=== PATIENT | female | born 1940 | race Caucasian/White ===

== ENCOUNTER 2016-09-27 10:35 | Outpatient (CLI) | payer MEDICARE, OTHER | END 2016-09-27 10:36 | disposition home or self-care (01) | DX: M19.011 Primary osteoarthritis, right shoulder (principal); M25.511 Pain in right shoulder ==

== ENCOUNTER 2016-12-13 11:56 | Outpatient (CLI) | payer MEDICARE, OTHER ==
--- NOTE | 2016-12-14 14:27 | Mammography Report ---
DIGITAL SCREENING MAMMOGRAM: 12/13/2016 CLINICAL INDICATION: A 76-year-old nulliparous patient with family history of breast cancer, for scre ening. COMPARISON: 12/2015, 12/2014, 12/2013, 07/2012, 06/2011, 06/2010, 05/2010, 04/2009, 12/2007, 11/2006. TECHNIQUE: Routine CC and MLO projections were obtained of the breasts. FINDINGS: The breasts again demonstrate heterogeneously dense fibroglandular parenchyma bilaterally. Coarse, typically benign calcifications are present. No suspicious masses, clustered microcalcificat ions, or regions of architectural distortion are identified. IMPRESSION: BENIGN FINDINGS. RECOMMENDATION: ROUTINE ANNUAL SCREENING UNLESS OTHERWISE CLINICALLY INDICATED. BIRADS CATEGORY 2-BENIGN FINDINGS. STANDARD QUALIFYING STATEMENTS 1. This examination was reviewed with the aid of Computer-Aided Detection (CAD). 2. A negative or benign imaging report should not delay biopsy if clinically suspicious findings are present. Consider surgical consultation if warranted. More than 5% of cancers are not identified by i maging. 3. Dense breasts may obscure an underlying neoplasm. JOB #: [id number] EXT JOB #:[id number]
== END 2016-12-13 11:57 | disposition home or self-care (01) ==
LOC: DI 11:56
PROVIDERS: ATTEND Physician Assistant Medical
DX: Z12.31 Encounter for screening mammogram for malignant neoplasm of breast (principal); Z80.3 Family history of malignant neoplasm of breast
CPT/HCPCS: 77067

== ENCOUNTER 2017-01-16 07:56 | Outpatient (CLI) | payer MEDICARE, OTHER ==
[2017-01-16 13:19] LABS: BASOPHILS % (AUTO) 0.7 %; EOSINOPHILS # (AUTO) 0.4 10^3/uL (0.0-0.7); EOSINOPHILS % (AUTO) 6.6 %; HCT - HEMATOCRIT 41.2 % (37.0-47.0); HGB - HEMOGLOBIN 13.8 g/dL (12.0-16.0); LYMPHOCYTES % (AUTO) 35.5 %; MEAN CORPUSCULAR HEMOGLOBIN 31.7 pg (27.0-31.0); MEAN CORPUSCULAR HGB CONC 33.4 g/dL (32.0-36.0); MEAN CORPUSCULAR VOLUME 94.9 fL (81.0-99.0); MEAN PLATELET VOLUME 8.7 fL (7.9-10.8); MONOCYTES # (AUTO) 0.5 10^3/uL (0.0-1.0); MONOCYTES % (AUTO) 8.6 %; NEUTROPHILS # (AUTO) 2.8 10^3/uL (1.5-6.6); NEUTROPHILS % (AUTO) 48.6 %; RED BLOOD COUNT 4.34 10^6/uL (4.20-5.40); RED CELL DISTRIBUTION WIDTH 12.7 % (12.0-15.0); UNCORRECTED WHITE BLOOD COUNT 5.7 x10^3/uL; WHITE BLOOD COUNT 5.7 x10^3/uL (4.8-10.8)
[2017-01-16 13:36] LABS: ALBUMIN/GLOBULIN RATIO 1.2 (1.0-2.2); BILIRUBIN,TOTAL 0.6 mg/dL (0.2-1.0); BUN - BLOOD UREA NITROGEN 28 mg/dL (6-20); CALCIUM 9.4 mg/dL (8.5-10.3); CARBON DIOXIDE - CO2 28 mmol/L (21-32); CHLORIDE 103 mmol/L (101-111); CHOLESTEROL 128 mg/dL; CREATININE 1.3 mg/dL (0.4-1.0); GFR - MDRD 40 (>89); GLUCOSE 89 mg/dL (70-100); HDL CHOLESTEROL 42 mg/dL; LDL/HDL RATIO 1.5 (<4.4); POTASSIUM 4.7 mmol/L (3.5-5.0); SODIUM 138 mmol/L (135-145); TOTAL PROTEIN 7.2 g/dL (6.7-8.2); TRIGLYCERIDES 123 mg/dL; VLDL CHOLESTEROL 25 mg/dL
== END 2017-01-16 07:57 | disposition home or self-care (01) ==
LOC: LAB.R 07:56
PROVIDERS: ATTEND Physician Assistant Medical
DX: I10 Essential (primary) hypertension (principal); E78.2 Mixed hyperlipidemia; M19.90 Unspecified osteoarthritis, unspecified site; Z79.899 Other long term (current) drug therapy; E55.9 Vitamin D deficiency, unspecified
CPT/HCPCS: 80053; 80061; 82306; 84443; 85025

== ENCOUNTER 2017-02-05 08:02 | Outpatient (CLI) | payer MEDICARE, OTHER ==
--- NOTE | 2017-02-05 11:32 | DEXA Report ---
DEXA SCAN: 02/05/2017 CLINICAL INDICATION: Postmenopausal. TECHNIQUE: Dual energy x-ray absorptiometry (DXA) was performed on a [employer] system. Regions measured are the AP spine, femoral neck, and, if needed, forearm. COMPARISON: None. In accordance with the International Society for Clinical Densitometry (ISCD) guidelines, data from previous exams may be reanalyzed using current recommendations and techniques. This is done to allow a more accurate basis for comparison with the current study. FINDINGS: The data for the lumbar spine is as follows: REGION BMD (g/cm/cm) T-SCORE Z-SCORE L1 1.117 -0.1 1.8 L2 1.146 -0.5 1.5 L3 1.180 -0.2 1.8 L4 1.195 0.0 1.9 TOTAL 1.165 -0.1 1.8 NOTE: All evaluable vertebrae are used for classification. The data for the hip is as follows: REGION BMD (g/cm/cm) T-SCORE Z-SCORE Neck 0.948 -0.6 1.4 TOTAL 0.958 -0.4 1.5 NOTE: The femoral neck or total proximal femur, whichever is lowest, is used for classification. IMPRESSION: THE WHO CLASSIFICATION BASED ON THE INTERNATIONAL REFERENCE STANDARD IS NORMAL. THE FRACTURE RISK IS NOT INCREASED. RECOMMENDATION: Patients with diagnosis of osteoporosis or osteopenia should have regular bone mineral density assessment. For those eligible for Medicare, routine testing is allowed once every 2 years. Testing frequency can be increased for patients who have rapidly progressing disease or for those who are receiving medical therapy to restore bone mass. COMMENT: World Health Organization (WHO) definitions for osteoporosis and osteopenia: NORMAL BMD: T-score at -1.0 or higher, fracture risk is low. OSTEOPENIA BMD: T-score between -1.0 and -2.5, fracture risk is increased. OSTEOPOROSIS BMD: T-score at -2.5 or lower, fracture risk high. National Osteoporosis Foundation recommends: 1. Obtain adequate dietary calcium (at least 1200 mg per day) and vitamin D (400 -800 international units per day). 2. Participate, as appropriate, in regular weightbearing and muscle- strengthening exercise. 3. Avoid tobacco use and reduce alcohol and caffeine intake. 4. For more detailed information see the website at www.NOF.org. MTDD
== END 2017-02-05 08:03 | disposition home or self-care (01) ==
LOC: DI 08:02
PROVIDERS: ATTEND Physician Assistant Medical
DX: M81.0 Age-related osteoporosis without current pathological fracture (principal)
CPT/HCPCS: 77080

== ENCOUNTER 2017-12-17 09:41 | Outpatient (CLI) | payer MEDICARE, OTHER ==
--- NOTE | 2017-12-18 13:12 | Mammography Report ---
Procedure Date: 12/17/2017 Accession Number: [id number] / [id number] Procedure: JAMAL - Screening Mammo Dig Bilat CPT Code: FULL RESULT: EXAM: Screening Mammo Dig Bilat DATE: 12/17/2017 10:16 AM CLINICAL HISTORY: 77-year-old nulliparous patient with family history of breast cancer for screening COMPARISON: 12/13/2016, 01/03/2016, 12/17/2014, 12/10/2013, 07/25/2012, 07/06/2011, 06/13/2010, 05/31/2010 TECHNIQUE: Bilateral CC and MLO views were obtained. FINDINGS: Breasts demonstrate heterogeneously dense fibroglandular parenchyma bilaterally. Coarse and punctate, typically benign calcifications are present. No suspicious masses, clustered microcalcifications, or regions of architectural distortion are identified. IMPRESSION: Benign findings RECOMMENDATION: Routine annual screening unless otherwise clinically indicated. BIRADS CATEGORY 2: Benign findings STANDARD QUALIFYING STATEMENTS: 1. This examination was reviewed with the aid of Computer-Aided Detection (CAD). 2. A negative or benign imaging report should not delay biopsy if clinically suspicious findings are present. Consider surgical consultation if warrented. More than 5% of cancers are not identified by imaging. 3. Dense breasts may obscure an underlying neoplasm.
== END 2017-12-17 09:42 | disposition home or self-care (01) ==
LOC: DI 09:41
PROVIDERS: ATTEND Physician Assistant Medical
DX: Z12.31 Encounter for screening mammogram for malignant neoplasm of breast (principal); Z80.3 Family history of malignant neoplasm of breast
CPT/HCPCS: 77067

== ENCOUNTER 2018-01-28 08:00 | Outpatient (CLI) | payer MEDICARE, OTHER ==
[2018-01-28 13:35] LABS: BASOPHILS # (AUTO) 0.1 10^3/uL (0.0-0.1); EOSINOPHILS # (AUTO) 0.3 10^3/uL (0.0-0.7); EOSINOPHILS % (AUTO) 5.5 %; HGB - HEMOGLOBIN 13.5 g/dL (12.0-16.0); LYMPHOCYTES # (AUTO) 1.9 10^3/uL (1.5-3.5); LYMPHOCYTES % (AUTO) 32.6 %; MEAN CORPUSCULAR HEMOGLOBIN 32.2 pg (27.0-31.0); MEAN CORPUSCULAR VOLUME 97.7 fL (81.0-99.0); MEAN PLATELET VOLUME 9.1 fL (7.9-10.8); MONOCYTES # (AUTO) 0.5 10^3/uL (0.0-1.0); NEUTROPHILS % (AUTO) 51.9 %; PLT - PLATELET COUNT 163 10^3/uL (130-450); RED BLOOD COUNT 4.19 10^6/uL (4.20-5.40); RED CELL DISTRIBUTION WIDTH 12.9 % (12.0-15.0); WHITE BLOOD COUNT 5.9 x10^3/uL (4.8-10.8)
[2018-01-28 13:57] LABS: ALBUMIN 3.8 g/dL (3.2-5.5); ALBUMIN/GLOBULIN RATIO 1.4 (1.0-2.2); ALKALINE PHOSPHATASE 52 IU/L (42-121); ALT ALANINE AMINOTRANSFERASE 19 IU/L (10-60); AST ASPARTATE AMINOTRANSFERASE 23 IU/L (10-42); BILIRUBIN,TOTAL 1.1 mg/dL (0.2-1.0); BUN - BLOOD UREA NITROGEN 29 mg/dL (6-20); CALCIUM 9.3 mg/dL (8.5-10.3); CARBON DIOXIDE - CO2 28 mmol/L (21-32); CHLORIDE 105 mmol/L (101-111); CHOL/HDL RATIO 2.8 (<4.4); CHOLESTEROL 124 mg/dL; CREATININE 1.2 mg/dL (0.4-1.0); GFR - MDRD 44 (>89); GLUCOSE 88 mg/dL (70-100); HDL CHOLESTEROL 44 mg/dL; LDL CHOLESTEROL,CALCULATED 52 mg/dL; LDL/HDL RATIO 1.2 (<4.4); SODIUM 137 mmol/L (135-145); TOTAL PROTEIN 6.6 g/dL (6.7-8.2); VLDL CHOLESTEROL 28 mg/dL
== END 2018-01-28 08:01 | disposition home or self-care (01) ==
LOC: LAB.R 08:00
PROVIDERS: ATTEND Physician Assistant Medical
DX: E55.9 Vitamin D deficiency, unspecified (principal); Z79.899 Other long term (current) drug therapy; E78.2 Mixed hyperlipidemia; I12.9 Hypertensive chronic kidney disease with stage 1 through stage 4 chronic kidney disease, or unspecified chronic kidney disease; N18.9 Chronic kidney disease, unspecified
CPT/HCPCS: 80053; 80061; 82306; 83721; 84443; 85025

== ENCOUNTER 2018-02-10 08:00 | Outpatient (CLI) | payer MEDICARE, OTHER ==
[2018-02-10 14:52] LABS: CALCIUM 9.5 mg/dL (8.5-10.3); CREATININE 1.2 mg/dL (0.4-1.0)
== END 2018-02-10 08:01 | disposition home or self-care (01) ==
LOC: LAB.R 08:00
PROVIDERS: ATTEND Physician Assistant Medical
DX: G60.9 Hereditary and idiopathic neuropathy, unspecified (principal); N18.9 Chronic kidney disease, unspecified
CPT/HCPCS: 80048; 82607

== ENCOUNTER 2018-02-13 08:17 | Outpatient (CLI) | payer MEDICARE, OTHER ==
--- NOTE | 2018-02-14 17:58 | MRI Report ---
Procedure Date: 02/13/2018 Accession Number: [id number] / [id number] Procedure: MRI - Lumbar Spine W/O CPT Code: FULL RESULT: EXAM: MRI LUMBAR SPINE WITHOUT CONTRAST EXAM DATE: 02/13/2018 09:42 AM. CLINICAL HISTORY: Peripheral neuropathy, chronic lumbar back pain. COMPARISON: None. TECHNIQUE: Multiplanar, multisequence T1-weighted and fluid-sensitive sequences of the lumbar spine from T12 to S1 without contrast. Other: None. FINDINGS: Numbering assumes 5 [id number] lumbar-type vertebral bodies. Grade 1 retrolisthesis of L5 relative to S1 and L3 relative to L4 is noted. Grade 1 retrolisthesis of L1 relative to L2 and L2 relative to L3 is present. Grade 1 anterolisthesis of L4 relative to L5 is noted. No suspicious marrow replacement is identified in the lumbar vertebral bodies. The distal tip of the conus medullaris is seen at the level of the inferior L1 endplate. No abnormal signal is seen in the conus medullaris. Facet/ligamentum flavum hypertrophy is seen throughout the lumbar spine, greatest in the lower lumbar spine, most evident at L4-L5. A remote superior endplate compression deformity is seen at T12. T8-T9: Sagittal images demonstrate a mild subligamentous disk protrusion. T9-T10: Sagittal images demonstrate a minimal subligamentous central disk protrusion. T10-T11: A moderate subligamentous central disk protrusion is seen on the sagittal views with what appears to be mild central canal stenosis. T11-T12 and T12-L1: No posterior disk protrusion. L1-L2: Sagittal views demonstrate a moderate broad-based posterior disk protrusion. There is suspicion for at least a borderline central canal at this level on the sagittal views. L2-L3: A mild to moderate broad-based posterior disk protrusion is seen without central canal stenosis. Superior lateral recess narrowing is seen bilaterally. No foraminal stenosis. L3-L4: A mild posterolateral proximal foraminal protrusion is seen bilaterally without central canal or foraminal stenosis present. Superior lateral recess narrowing is seen bilaterally. L4-L5: A mild broad-based posterior disk protrusion is seen. Disk material extends into the foramen bilaterally without foraminal stenosis present. Superior lateral recess stenosis is present bilaterally. Central canal measures 8 mm. L5-S1: A mild broad-based posterior disk protrusion is seen. Mild bilateral foraminal stenosis is seen. Very mild superior lateral recess stenosis is seen bilaterally. IMPRESSION: 1. Degenerative disk disease is seen at multiple levels in the lower thoracic spine and lumbar spine. This is greatest at T10-T11, L1-L2, L4-L5, and L5-S1. 2. Mild central canal stenosis is present at L4-L5. There is an at least borderline central canal at L1-L2 and at T10-T11 on the sagittal views. 3. Bilateral foraminal stenosis is present at L5-S1. 4. Bilateral superior lateral recess stenosis is seen at L4-L5 and to a much lesser extent L5-S1. 5. Multilevel spondylolisthesis, greatest at L4-L5. 6. A remote superior endplate compression deformity is present at T12. Comment: The following findings are so common in adults without low back pain that while we report their presence, they must be interpreted with caution and in the context of the clinical situation. (Reference Shruthivik et al, Spine 2001) Prevalence of findings in patients without low back pain: Disk degeneration (any evidence): 92% Disk desiccation/T2 signal loss: 83% Disk height loss: 56% Disk bulge: 64% Disk protrusion: 32% Annular tear/high intensity zone: 38% RADIA
== END 2018-02-13 08:18 | disposition home or self-care (01) ==
LOC: DI 08:17
PROVIDERS: ATTEND Physician Assistant Medical
DX: M51.36 Other intervertebral disc degeneration, lumbar region (principal); M48.061 Spinal stenosis, lumbar region without neurogenic claudication; M43.16 Spondylolisthesis, lumbar region; G60.9 Hereditary and idiopathic neuropathy, unspecified
CPT/HCPCS: 72148

== ENCOUNTER → 2018-04-17 | Outpatient (CLI) | payer MEDICARE, OTHER | LOC: RT 09:15 | PROVIDERS: ATTEND Internal Medicine Cardiovascular Disease | DX: Z01.810 Encounter for preprocedural cardiovascular examination (principal) | CPT/HCPCS: 93005 ==

== ENCOUNTER 2018-04-21 15:35 | Outpatient (CLI) | payer MEDICARE, OTHER ==
[2018-04-21 16:17] LABS: BASOPHILS # (AUTO) 0.1 10^3/uL (0.0-0.1); BASOPHILS % (AUTO) 0.9 %; EOSINOPHILS # (AUTO) 0.3 10^3/uL (0.0-0.7); EOSINOPHILS % (AUTO) 4.6 %; HGB - HEMOGLOBIN 13.5 g/dL (12.0-16.0); LYMPHOCYTES # (AUTO) 2.1 10^3/uL (1.5-3.5); LYMPHOCYTES % (AUTO) 35.2 %; MEAN CORPUSCULAR HEMOGLOBIN 31.9 pg (27.0-31.0); MEAN CORPUSCULAR HGB CONC 33.4 g/dL (32.0-36.0); MEAN CORPUSCULAR VOLUME 95.4 fL (81.0-99.0); MONOCYTES # (AUTO) 0.5 10^3/uL (0.0-1.0); MONOCYTES % (AUTO) 8.6 %; NEUTROPHILS # (AUTO) 3.1 10^3/uL (1.5-6.6); NEUTROPHILS % (AUTO) 50.7 %; PLT - PLATELET COUNT 188 10^3/uL (130-450); RED BLOOD COUNT 4.21 10^6/uL (4.20-5.40); WHITE BLOOD COUNT 6.1 x10^3/uL (4.8-10.8)
[2018-04-21 16:25] LABS: BILIRUBIN,URINE NEGATIVE (NEGATIVE); GLUCOSE, URINE (UA) NEGATIVE (NEGATIVE); KETONES,URINE (UA) NEGATIVE (NEGATIVE); LEUKOCYTE ESTERASE, URINE NEGATIVE (NEGATIVE); NITRITE,URINE NEGATIVE (NEGATIVE); OCCULT BLOOD,URINE NEGATIVE (NEGATIVE); PH,URINE 5.5 PH (5.0-7.5); PROTEIN,URINE NEGATIVE (NEGATIVE); UROBILINOGEN,URINE 0.2 (NORMAL) E.U./dL (NORMAL)
[2018-04-21 16:29] LABS: ALBUMIN/GLOBULIN RATIO 1.3 (1.0-2.2); BILIRUBIN,TOTAL 0.6 mg/dL (0.2-1.0); CALCIUM 9.1 mg/dL (8.5-10.3); CLARITY,URINE CLEAR (CLEAR); CREATININE 1.2 mg/dL (0.4-1.0); TOTAL PROTEIN 7.1 g/dL (6.7-8.2)
[2018-04-21 16:59] LABS: HB2 TOTAL 14.2 g/dL; HEMOGLOBIN A1C 0.59 g/dL
== END 2018-04-21 15:36 | disposition home or self-care (01) ==
LOC: LAB 15:35
PROVIDERS: ATTEND Physician Assistant Medical
DX: Z01.818 Encounter for other preprocedural examination (principal); N18.9 Chronic kidney disease, unspecified; M48.02 Spinal stenosis, cervical region; E78.2 Mixed hyperlipidemia; I10 Essential (primary) hypertension
CPT/HCPCS: 36415; 80053; 81001; 81003; 83036; 85025; 85610; 85730; 87086

== ENCOUNTER 2020-04-04 07:53 | Outpatient (CLI) | payer MEDICARE, OTHER ==
[2020-04-04 08:26] LABS: BASOPHILS % (AUTO) 0.7 %; EOSINOPHILS # (AUTO) 0.3 10^3/uL (0.0-0.7); HGB - HEMOGLOBIN 13.3 g/dL (12.0-16.0); LYMPHOCYTES # (AUTO) 1.8 10^3/uL (1.5-3.5); LYMPHOCYTES % (AUTO) 30.5 %; MEAN CORPUSCULAR HGB CONC 32.4 g/dL (32.0-36.0); MEAN CORPUSCULAR VOLUME 98.8 fL (81.0-99.0); MEAN PLATELET VOLUME 9.9 fL (7.9-10.8); MONOCYTES # (AUTO) 0.7 10^3/uL (0.0-1.0); MONOCYTES % (AUTO) 11.2 %; NEUTROPHILS # (AUTO) 3.2 10^3/uL (1.5-6.6); NEUTROPHILS % (AUTO) 52.4 %; PLT - PLATELET COUNT 186 10^3/uL (130-450); RED BLOOD COUNT 4.15 10^6/uL (4.20-5.40); RED CELL DISTRIBUTION WIDTH 13.1 % (12.0-15.0)
[2020-04-04 09:16] LABS: ALBUMIN 3.7 g/dL (3.2-5.5); ALBUMIN/GLOBULIN RATIO 1.2 (1.0-2.2); ALKALINE PHOSPHATASE 55 IU/L (42-121); ALT ALANINE AMINOTRANSFERASE 17 IU/L (10-60); AST ASPARTATE AMINOTRANSFERASE 21 IU/L (10-42); BILIRUBIN,TOTAL 0.7 mg/dL (0.2-1.0); BUN - BLOOD UREA NITROGEN 26 mg/dL (6-20); CALCIUM 9.3 mg/dL (8.5-10.3); CARBON DIOXIDE - CO2 27 mmol/L (21-32); CHLORIDE 105 mmol/L (101-111); CHOL/HDL RATIO 2.8 (<4.4); CHOLESTEROL 127 mg/dL; CREATININE 1.2 mg/dL (0.4-1.0); GLUCOSE 98 mg/dL (70-100); HDL CHOLESTEROL 45 mg/dL; LDL CHOLESTEROL,CALCULATED 64 mg/dL; LDL/HDL RATIO 1.4 (<4.4); SODIUM 138 mmol/L (135-145); TOTAL PROTEIN 6.9 g/dL (6.7-8.2); VLDL CHOLESTEROL 18 mg/dL
== END 2020-04-04 07:54 | disposition home or self-care (01) ==
LOC: LAB 07:53
PROVIDERS: ATTEND Family Medicine
DX: I10 Essential (primary) hypertension (principal); E55.9 Vitamin D deficiency, unspecified; I25.10 Atherosclerotic heart disease of native coronary artery without angina pectoris; M15.9 Polyosteoarthritis, unspecified
CPT/HCPCS: 36415; 80053; 80061; 82306; 83721; 84443; 85025

== ENCOUNTER 2020-08-31 08:01 | Outpatient (CLI) | payer MEDICARE, OTHER ==
[2020-08-31 08:28] LABS: CALCIUM 9.5 mg/dL (8.5-10.3); CREATININE 1.2 mg/dL (0.4-1.0)
== END 2020-08-31 08:02 | disposition home or self-care (01) ==
LOC: LAB 08:01
PROVIDERS: ATTEND Orthopaedic Surgery
DX: I10 Essential (primary) hypertension (principal)
CPT/HCPCS: 36415; 80048

== ENCOUNTER 2021-04-19 14:21 | Outpatient (CLI) | payer MEDICARE, OTHER ==
--- NOTE | 2021-04-19 15:09 | XRAY Report ---
PROCEDURE: Femur 2V LT INDICATIONS: Hip joint pain, left TECHNIQUE: 2 views of the femur were acquired. COMPARISON: None. FINDINGS: BONES: No acute, displaced fracture or dislocation. At least moderate joint space loss of the femoroa cetabular articulation with osteophytosis and sclerosis of the opposing articular surfaces. Mild prod uctive changes about the greater trochanter, which may reflect enthesopathy. SOFT TISSUES: No focal abnormality. Vascular calcifications are seen. IMPRESSION: 1.No acute osseous abnormality. Reviewed by: Dustin Valenzuela MD on 04/19/2021 3:08 PM PDT Approved by: Dustin Valenzuela MD on 04/19/2021 3:08 PM PDT Station ID: [id number]
== END 2021-04-19 14:22 | disposition home or self-care (01) ==
LOC: DI 14:21
PROVIDERS: ATTEND Family Medicine
DX: M25.552 Pain in left hip (principal)

== ENCOUNTER 2021-06-20 08:15 | Outpatient (CLI) | payer MEDICARE, OTHER ==
--- NOTE | 2021-06-20 15:27 | XRAY Report ---
PROCEDURE: Hip w/Pelvis 1V LT INDICATIONS: L HIP PX TECHNIQUE: AP pelvis with lateral view(s) of the left hip(s). COMPARISON: None. FINDINGS: Bones: No fractures or dislocations. Pelvic ring appears intact. No suspicious bony lesions. Tian[place] re bilateral joint degeneration, left greater than right Soft tissues: The visualized bowel gas pattern is normal. No suspicious soft tissue calcifications. IMPRESSION: Severe degenerative joint disease of the hips bilaterally, left greater than right. Reviewed by: Trudy Linda MD on 06/20/2021 3:25 PM PST Approved by: Trudy Linda MD on 06/20/2021 3:25 PM PST Station ID: [id number]
== END 2021-06-20 23:59 | disposition home or self-care (01) ==
LOC: DI.N 08:15
PROVIDERS: ATTEND Physician Assistant
DX: M16.0 Bilateral primary osteoarthritis of hip (principal)

== ENCOUNTER 2021-07-25 12:51 | Outpatient (CLI) | payer MEDICARE, OTHER ==
[2021-07-25] MEDS ORDERED: TRIAMCINOLONE 40 MG/ML VIAL ONE (13:43)
[2021-07-25] MEDS ORDERED: IOTHALAMATE MEGLUMINE 50 ML VIAL ONE (13:44)
[2021-07-25] MEDS ORDERED: ROPIVACAINE 0.5% PF 20 ML AMPULE ONE (13:44)
[2021-07-25] MEDS ORDERED: lidocaine 1% 20 ML MDV ONE (13:50)
[2021-07-25] MEDS: ROPIVACAINE 0.5% PF 20 ML AMPULE EP ONE (14:38)
[2021-07-25] MEDS: lidocaine 1% 20 ML MDV SUBQ ONE (14:41)
[2021-07-25] MEDS: TRIAMCINOLONE 40 MG/ML VIAL IM ONE (14:42)
[2021-07-25] MEDS: IOTHALAMATE MEGLUMINE 50 ML VIAL IVP ONE (14:43)
--- NOTE | 2021-08-04 14:02 | XRAY Report ---
PROCEDURE: Inj/Aspiration Major Joint INDICATIONS: DJD LEFT HIP FLUORO TIME: FLUORO TIME: 0.3 and NUMBER IMAGES: 2 TECHNIQUE: The indications, alternatives, benefits, risks, and complications of the procedure were explained to the patient. Written informed consent was obtained and placed in the chart. The patient was placed in an appropriate position on the fluoroscopy table, and a site was chosen for percutaneous access un andrew fluoroscopic guidance. Local anesthetic was administered using a 1% lidocaine solution. A hypod ermic or spinal needle was then used to access the symptomatic joint. Intra-articular location of th e needle tip was confirmed by injecting a small amount of contrast, followed by steroid administratio n. The needle was then withdrawn, and a bandage applied to the puncture site. FINDINGS: Joint injected: Left hip Medications injected: 1 mL of 40 mg/mL Kenalog and 3 0.5% Ropivacaine mixture. Complications: None. IMPRESSION: Successful fluoroscopically guided administration of steroid and anaesthetic solution into the left h ip joint. Reviewed by: Stephen Shore MD on 08/04/2021 2:00 PM PST Approved by: Stephen Shore MD on 08/04/2021 2:00 PM PST Station ID: [id number]
== END 2021-07-25 12:52 | disposition home or self-care (01) ==
LOC: DI 12:51
PROVIDERS: ATTEND Physician Assistant
DX: M16.12 Unilateral primary osteoarthritis, left hip (principal)
CPT/HCPCS: 20610; 77002; Q9961

== ENCOUNTER 2021-10-04 09:19 | Outpatient (CLI) | payer MEDICARE, OTHER ==
[2021-10-04 09:34] LABS: BASOPHILS % (AUTO) 0.4 %; EOSINOPHILS # (AUTO) 0.4 10^3/uL (0.0-0.7); EOSINOPHILS % (AUTO) 4.1 %; HCT - HEMATOCRIT 41.2 % (37.0-47.0); HGB - HEMOGLOBIN 13.2 g/dL (12.0-16.0); LYMPHOCYTES # (AUTO) 1.7 10^3/uL (1.5-3.5); LYMPHOCYTES % (AUTO) 18.9 %; MEAN CORPUSCULAR HEMOGLOBIN 31.2 pg (27.0-31.0); MEAN CORPUSCULAR VOLUME 97.4 fL (81.0-99.0); MEAN PLATELET VOLUME 9.5 fL (7.9-10.8); MONOCYTES # (AUTO) 0.8 10^3/uL (0.0-1.0); MONOCYTES % (AUTO) 8.7 %; NEUTROPHILS # (AUTO) 6.2 10^3/uL (1.5-6.6); NEUTROPHILS % (AUTO) 67.6 %; PLT - PLATELET COUNT 266 10^3/uL (130-450); RED BLOOD COUNT 4.23 10^6/uL (4.20-5.40); RED CELL DISTRIBUTION WIDTH 13.4 % (12.0-15.0); WHITE BLOOD COUNT 9.1 x10^3/uL (4.8-10.8)
[2021-10-04 09:53] LABS: ALBUMIN 3.9 g/dL (3.2-5.5); ALBUMIN/GLOBULIN RATIO 1.1 (1.0-2.2); ALKALINE PHOSPHATASE 70 IU/L (42-121); ALT ALANINE AMINOTRANSFERASE 15 IU/L (10-60); AST ASPARTATE AMINOTRANSFERASE 18 IU/L (10-42); BILIRUBIN,TOTAL 0.7 mg/dL (0.2-1.0); BUN - BLOOD UREA NITROGEN 30 mg/dL (6-20); CALCIUM 9.8 mg/dL (8.5-10.3); CARBON DIOXIDE - CO2 28 mmol/L (21-32); CHLORIDE 100 mmol/L (101-111); CHOL/HDL RATIO 2.8 (<4.4); CHOLESTEROL 121 mg/dL; CREATININE 1.4 mg/dL (0.4-1.0); GFR - MDRD 36 (>89); GLUCOSE 106 mg/dL (70-100); HDL CHOLESTEROL 43 mg/dL; LDL CHOLESTEROL,CALCULATED 55 mg/dL; LDL/HDL RATIO 1.3 (<4.4); POTASSIUM 4.7 mmol/L (3.5-5.0); SODIUM 139 mmol/L (135-145); TOTAL PROTEIN 7.3 g/dL (6.7-8.2); TRIGLYCERIDES 113 mg/dL; VLDL CHOLESTEROL 23 mg/dL
[2021-10-04 10:04] LABS: THYROID STIMULATING HORMONE 1.68 uIU/mL (0.34-5.60)
== END 2021-10-04 09:20 | disposition home or self-care (01) ==
LOC: LAB 09:19
PROVIDERS: ATTEND Family Medicine
DX: I10 Essential (primary) hypertension (principal); M16.12 Unilateral primary osteoarthritis, left hip; M19.90 Unspecified osteoarthritis, unspecified site; M54.16 Radiculopathy, lumbar region; G89.29 Other chronic pain; I25.10 Atherosclerotic heart disease of native coronary artery without angina pectoris; E78.2 Mixed hyperlipidemia; G62.9 Polyneuropathy, unspecified
CPT/HCPCS: 36415; 80053; 80061; 83721; 84443; 85025

== ENCOUNTER 2021-12-19 10:04 | Outpatient (CLI) | payer MEDICARE, OTHER | END 2021-12-19 10:05 | disposition home or self-care (01) | LOC: RT 10:04 | PROVIDERS: ATTEND Family Medicine | DX: Z01.810 Encounter for preprocedural cardiovascular examination (principal); I25.10 Atherosclerotic heart disease of native coronary artery without angina pectoris | CPT/HCPCS: 93005 ==

== ENCOUNTER 2022-01-03 05:58 | Day surgery (SDC) | payer MEDICARE, OTHER ==
[2022-01-03] MEDS ORDERED: CELECOXIB 100 MG CAPSULE PO ONE (06:01)
[2022-01-03] MEDS ORDERED: CEFAZOLIN SODIUM IN 0.9 % NACL 2 GM/50 ML BAG IV ONE (06:01)
[2022-01-03] MEDS ORDERED: ACETAMINOPHEN 1,000 MG/100 ML 100 ML IV ONE (06:01)
[2022-01-03] MEDS ORDERED: DEXAMETHASONE 10 MG/ML VIAL ONE (06:02)
[2022-01-03] MEDS ORDERED: LACTATED RINGERS 1,000 ML IV ONE ×2 (06:35→10:50)
[2022-01-03] MEDS ORDERED: BUPIVACAINE 0.5% PF 10 ML VIAL ONE (07:08)
[2022-01-03] MEDS ORDERED: PROPOFOL 500 MG/50 ML 500 MG/50 ML VIAL ONE (07:08)
[2022-01-03] MEDS ORDERED: ONDANSETRON 4 MG/2 ML VIAL ONE (07:08)
[2022-01-03] MEDS ORDERED: VANCOMYCIN 1 GM VIAL ONE (07:17)
[2022-01-03] MEDS ORDERED: BUPIVACAINE 0.25% PF 10 ML VIAL ONE (07:17)
--- NOTE | 2022-01-03 07:20 | ANESTHESIA ---
Pre-Anesthesia VS, & Labs - Diagnosis left hip oa - Procedure left total hip arthroplasty Vital Signs: Temp Pulse Resp BP Pulse Ox 36.3 C L 60 16 120/70 97 01/03/22 06:23 01/03/22 06:23 01/03/22 06:23 01/03/22 06:23 01/03/22 06:23 Height: 5 ft 1 in Weight (kg): 61.6 kg Body Mass Index: 25.6 BMI Classification: Overweight - NPO >8 hours - Is Patient ?: No - Lab Results Current Lab Results: Laboratory Tests 01/03/22 06:40: POC Whole Bld Glucose 83 Home Medications and Allergies Home Medications: Ambulatory Orders Acetaminophen [Pain Relief Extra Strength] 500 mg PO QPM 12/22/21 Cetirizine HCl [Allergy] 10 mg PO DAILY PRN 12/22/21 Gabapentin [Neurontin] 300 mg PO HS 12/22/21 HYDROcodone/ACET 7.5/325 [[place] 7.5/325] 1 tab PO DAILY PRN 12/22/21 Metaxalone 800 mg PO QPM PRN 12/22/21 Nitroglycerin [Nitrostat] 0.4 mg SL [id number] PRN 12/22/21 Tolterodine Tartrate [Detrol LA] 4 mg PO DAILY 12/22/21 Aspirin Chewable [[facility] [place] Aspirin] 81 mg PO QPM 07/09/15 Atorvastatin Calcium 40 mg PO QPM 07/09/15 Cholecalciferol (Vitamin D3) [Vitamin D-3] 2,000 unit PO DAILY 07/09/15 Metoprolol Tartrate [Lopressor] 25 mg PO BID 07/09/15 Valsartan [Diovan] 160 mg PO QPM 07/09/15 Acetaminophen [Pain Relief Extra Strength] 500 mg PO QPM 12/22/21 Cetirizine HCl [Allergy] 10 mg PO DAILY PRN 12/22/21 Gabapentin [Neurontin] 300 mg PO HS 12/22/21 HYDROcodone/ACET 7.5/325 [[place] 7.5/325] 1 tab PO DAILY PRN 12/22/21 Metaxalone 800 mg PO QPM PRN 12/22/21 Nitroglycerin [Nitrostat] 0.4 mg SL [id number] PRN 12/22/21 Tolterodine Tartrate [Detrol LA] 4 mg PO DAILY 12/22/21 Allergies/Adverse Reactions: Allergies Allergy/AdvReac Type Severity Reaction Status Date / Time No Known Drug Allergies Allergy Verified 07/09/15 11:30 Anes History & Medical History - Medical History Cardiovascular: reports: Hypertension, NM Pulmonary: reports: Pneumonia Gastrointestinal: reports: Hiatal hernia Urinary: reports: Other Musculoskeletal: reports: Osteoarthritis Endocrine/Autoimmune: reports: None Skin: reports: None Smoking Status: Never smoker - Surgical History General: reports: Appendectomy Eyes Ears Nose Throat (EENT): reports: Cataracts Cardiothoracic: reports: Coronary stent Orthopedic: reports: Spine surgery Exam General: Alert, Oriented x3, Cooperative Dental: WNL Mouth Opening: Greater than 4 Fingerbreadths Mallampati classification: II Thyromental Distance: 4-6 cm Respiratory: Lungs clear Cardiovascular: Regular rate, Normal S1, Normal S2 Mental/Cognitive Status: Alert/Oriented X3 Plan Anesthesia Type: Spinal Regional Block: Per Surgeon's request for Post Op pain control Consent for Procedure(s) Verified and Reviewed: Yes Code Status: Attempt Resuscitation ASA classification: 3-Severe systemic disease Is this case an emergency?: No
[2022-01-03] MEDS ORDERED: fentaNYL 100 MCG/2 ML VIAL IVP PRN ×2 (07:32→10:41)
[2022-01-03] MEDS ORDERED: ATROPINE ABBOJECT 1 MG/10 ML SYRINGE IVP PRN (07:32)
[2022-01-03] MEDS ORDERED: NALOXONE 0.4 MG/ML VIAL IVP PRN (07:32)
[2022-01-03] MEDS ORDERED: MORPHINE 2 MG/ML CARPUJECT IVP PRN (07:32)
[2022-01-03] MEDS ORDERED: HYDROmorphone 0.5 MG/0.5 ML SYRINGE IVP PRN (07:32)
[2022-01-03] MEDS ORDERED: ePHEDrine 50 MG/ML VIAL IVP PRN (07:32)
[2022-01-03] MEDS ORDERED: ONDANSETRON 4 MG/2 ML VIAL IVP PRN ×2 (07:32→10:41)
[2022-01-03] MEDS ORDERED: LACTATED RINGERS 1,000 ML IV SCH (08:00)
[2022-01-03] MEDS ORDERED: TRANEXAMIC ACID 1,000 MG/10 ML VIAL ONE (08:58)
[2022-01-03] MEDS ORDERED: VANCOMYCIN 1 GM VIAL MC ONE (09:10)
[2022-01-03] MEDS ORDERED: DEXAMETHASONE 4 MG/ML VIAL ONE (10:00)
[2022-01-03] MEDS ORDERED: ROPIVACAINE 0.2% PF 10 ML VIAL ONE (10:05)
[2022-01-03] MEDS ORDERED: SODIUM CHLORIDE 0.9% 10 ML VIAL IVP ONE (10:06)
[2022-01-03] MEDS ORDERED: ROPIVACAINE 0.5% PF 20 ML AMPULE ONE (10:06)
--- NOTE | 2022-01-03 10:18 | OPERATIVE REPORT ---
Operative Report - General Procedure Date: 01/03/22 Planned Procedure: left total hip arthroplasty Pre-Op Diagnosis: Osteoarthritis left hip Procedure Performed: left total hip arthroplastyUsing Cantu & Nephew total hip system: #6 noncemented , standard offset femoral component, +0 neck, 48 mm R3 acetabular insert with single acetabular screw, dual mobility liner Post Op Diagnosis: Osteoarthritis left hip - Procedure Note Primary Surgeon: Abdifatah Neal MD Secondary Surgeon: Esthela Carrasco PAC, Drew Blankenship PAC Anesthesia Technique: Regional block, Spinal IV Fluids (mL): 0 Estimated Blood Loss (mL): 100 Indications: This is a 81-year-old woman with bilateral hip osteoarthritis, very symptom attic on the left side and not responding to nonoperative treatment. She has limited activity capacity because of painful weightbearing, difficult to do activities of daily living and to keep up with activities around her house. She has pain in her hip, groin and upper thigh. She has painful and limited motion on exam of left hip, antalgic gait. Her x-ray showed advanced osteoarthritis of the left hip with absence of hip joint space, osteophytes, deformity of head/femur. She had preoperative medical evaluation including cardiology; she was felt to be acceptable risk for surgery.She does have chronic low back pain and takes a oral narcotic once daily for many years. She does not have a radicular component to her pain. Findings: In the left hip joint show complete loss of articular cartilage to both the femoral and acetabular sides of the joint. There are osteophytes and deformity of femoral head, eburnated bone surfaces Complications: None - Other Other Information/Narrative: After satisfactory spinal anesthesia had been achieved, the patient was placed in a lateral decubitus position with the Left hip facing superiorly. The patient was secured in the lateral decubitus position using a pegboard with 2 post securing the torso and 2 posts securing the pelvis. The Left hip and Left lower extremity were prepped and draped in a sterile manner in the usual fashion. A timeout procedure was performed by the entire operating room team and all were in agreement. A longitudinal incision was made about the lateral Left hip beginning at the vastus lateralis ridge of the proximal femur and extending it proximally approximately 3 fingerbreadths above the trochanter. The subcutaneous tissue and fascia lea were split in line with the incision. The anterior one third of the gluteus medius was incised at the tendinous junction. The gluteus medius was retracted medially. The hip capsule was exposed and was split in a T-shaped fashion. Part of the anterior hip capsule was excised. The femoral head was dislocated with flexion, adduction and external rotation. An osteotomy was done to the femoral neck using a osteotomy guide. Retractors were placed behind the femoral neck to protect the soft tissues from the oscillating saw. The proximal femur was retracted. 2 acetabular retractors were placed one anteriorly directly against bone to reduce any soft tissue impingement to femoral nerve. The second retractor was placed more posteriorly directly against bone and preventing any impingement against sciatic nerve. The acetabulum was prepared with a large curette. Medialization of the acetabulum was performed with a small acetabular reamer and then widening was done up to a 47 mm reamer ;the final reamers were placed in approximately 20 degrees anteversion and 45 degrees of abduction. A trial acetabular component was inserted, 47 mm and this fit well. A permanent 48 mm R3 acetabular 3-hole component was then impacted in 40 degrees of abduction and approximately 20 degrees of anteversion. This had good fixation to push pull and rotation. A single 30 mm superior acetabular screw was inserted. The stability of the acetabular cup was very good. A dual mobility oxinium acetabular liner was inserted into the cup. The femoral canal was opened with a box osteotome, starting reamer and then a short broach. Broaching was carried out to a #6. Calcar reaming was performed. Good fit and stability to the #6 stem was achieved. Trial reduction was performed. Hip motion was very good and the hip was stable to dislocation maneuvers. The trial components were removed. A permanent dual mobility head was impacted and inserted with the #6 Anthology femoral stem, impacted and fully seated. There was good stability to push pull and rotation.. The hip was reduced, had good leg length tension and good s tability with dislocation maneuvers. 3-minute lavage with dilute Betadine was performed. Vancomycin powder 2 g was inserted before the deep closure. The hip abductors were repaired at the myotendinous junction with #1 Strata fix. The fascia lea was closed with #1 Strata fix. The subcutaneous tissue was closed with 2-0 Strata fix. The skin was closed with a 3-0 Monocryl subcuticular closure and Dermabond. The patient tolerated the procedure well. A physician logging assistant was utilized during the procedure to provide Help with prepping and draping, retraction and protection of neurovascular structures as well as to facilitate dislocation and reduction of the hip joint,And wound closure/dressing.
[2022-01-03] MEDS ORDERED: DOCUSATE SODIUM 100 MG CAPSULE PO PRN (10:41)
[2022-01-03] MEDS ORDERED: SODIUM CHLORIDE FLUSH 0.9% 10 ML SYRINGE IVP PRN (10:41)
--- NOTE | 2022-01-03 11:14 | XRAY Report ---
PROCEDURE: Pelvis 1 View INDICATIONS: POST OPERATIVE IMAGING TECHNIQUE: 1 view(s) of the pelvis acquired. COMPARISON: X-ray hip 06/20/2021 FINDINGS: Expected postoperative changes are present reflecting left hip arthroplasty. Hardware is intact with good anatomic alignment. Subcutaneous soft tissue postoperative changes are also noted within the lef t hip. Right hip demonstrates moderate to severe arthritic change. IMPRESSION: Postsurgical left hip arthroplasty changes as above. Reviewed by: Amy Allen MD on 01/03/2022 11:13 AM PDT Approved by: Amy Allen MD on 01/03/2022 11:13 AM PDT Station ID: [id number]
[2022-01-03] MEDS: NS W/20 MEQ KCL 1,000 ML IV SCH ×2 (12:00→20:55)
[2022-01-03] MEDS: ACETAMINOPHEN 500 MG TABLET PO SCH ×3 (12:00→23:46)
[2022-01-03] MEDS: HYDROcod/ACETAM 5/325 MG TABLET PO PRN ×2 (13:32→18:38)
[2022-01-03] MEDS: CEFAZOLIN SODIUM IN 0.9 % NACL 2 GM/50 ML BAG IV SCH ×2 (13:32→20:54)
[2022-01-03] MEDS ORDERED: ceFAZolin 2 GM in SODIUM CHLORIDE 0.9% 100ML 100 ML IV SCH (14:00)
--- NOTE | 2022-01-03 14:37 | ANESTHESIA POST OP EVALUATION ---
Anesthesia Post Eval - Post Anesthesia Eval Vitals: Last Vital Signs Temp 36.6 C 01/03/22 11:50 Pulse 66 01/03/22 13:11 Resp 18 01/03/22 13:11 BP 104/63 01/03/22 13:11 Pulse Ox 95 01/03/22 13:11 CV Function Including HR & BP: Stable Pain Control: Satisfactory Nausea & Vomiting: Negative Mental Status: Baseline Respiratory Status: Airway Patent Hydration Status: Satisfactory Anesthesia Complications: None
[2022-01-03] MEDS: SODIUM CHLORIDE FLUSH 0.9% 10 ML SYRINGE IVP SCH (17:21)
[2022-01-03] MEDS: ASPIRIN EC 81 MG TABLET PO SCH (20:12)
[2022-01-03] MEDS: CELECOXIB 100 MG CAPSULE PO SCH (20:12)
[2022-01-03] MEDS: ethyl alcohoL 62% SWAB AMPULE NAS SCH (20:13)
--- NOTE | 2022-01-03 20:58 | CONSULTATION NOTE ---
Referring Provider Name of Referring Provider:: Dr Neal Consult Date: 01/03/22 Chief Complaint - Chief Complaint Chief Complaint: Elective hip surgery, manage co-morbidities History of Present Illness - History Obtained From History obtained from: Chart review and the patient - History of Present Illness HPI Comment/Other: This is an 81-year-old white female with a history of CAD, coronary stenting of the LAD done in 2012, prior VA, hypertension, CKD stage 3, Diabetes (diet controlled according to the Orthopedic PA) and this patient's pre-op labs done 12/11/21 showed an A1c of 6.5 but the patient claims she has never been told of having Diabetes. She is on Gabapentin for neuropathy and on intermediate daily opioid use (at home on 7.5/325 [place]) and has osteoarthritis. Today the patient underwent elective surgery of the left hip. She had preop cardiology clearance and was felt to have acceptable/low risk. She had her surgery today with no complications. The Orthopedic Surgeon has requested the Hospitalist team for consultation to manage her comorbidities. Patient's only complaint (was seen postop) is pain in the left hip and spasms of the left leg. Her CODE STATUS is Full Code. History - Past Medical History Cardiovascular: reports: Hypertension, VA Respiratory: reports: Pneumonia Neuro: reports: Peripheral neuropathy Endocrine/Autoimmune: reports: Type 2 diabetes GI: reports: Hiatal hernia : reports: Other HEENT: reports: Chronic vision loss, Chronic hearing loss (Has hearing aids) Psych: reports: None Musculoskeletal: reports: Osteoarthritis Derm: reports: None MRSA Hx?: No - Past Surgical History General: reports: Appendectomy Ortho: reports: Spine surgery Cardiovascular: reports: Coronary stent HEENT: reports: Cataracts - Family & Social History Family History: Mother: , Father: Family History Comment/Other: No diseases run in the family. Living arrangement: At home Living Situation: With spouse/s.o. Social History Notes: She is an ex-smoker quit 50 years ago. She drinks 1 beer per day. She lives with her . She does a lot of gardening and outdoor activities - Substance History Use: Uses substance without health or social issues: Alcohol Meds/Allgy - Home Medications Home Medications: Ambulatory Orders Medication Instructions Recorded Confirmed Aspirin Chewable [[place] 81 mg PO QPM 07/09/01/03/22 Aspirin] Atorvastatin Calcium 40 mg PO QPM 07/09/15 01/03/22 Cholecalciferol (Vitamin D3) 2,000 unit PO DAILY 07/09/15 01/03/22 [Vitamin D-3] Metoprolol Tartrate [Lopressor] 25 mg PO BID 07/09/15 01/03/22 Valsartan [Diovan] 160 mg PO QPM 07/09/15 01/03/22 Acetaminophen [Pain Relief Extra 500 mg PO QPM 12/22/21 12/22/21 Strength] Cetirizine HCl [Allergy] 10 mg PO DAILY PRN 12/22/21 01/03/22 Gabapentin [Neurontin] 300 mg PO HS 12/22/21 01/03/22 HYDROcodone/ACET 7.5/325 [[place] 1 tab PO DAILY PRN 12/22/21 01/03/22 7.5/325] Metaxalone 800 mg PO QPM PRN 12/22/21 12/22/21 Nitroglycerin [Nitrostat] 0.4 mg SL [id number] PRN 12/22/21 01/03/22 Tolterodine Tartrate [Detrol LA] 4 mg PO DAILY 12/22/21 01/03/22 - Allergies Allergies/Adverse Reactions: Allergies Allergy/AdvReac Type Severity Reaction Status Date / Time No Known Drug Allergies Allergy Verified 07/09/15 11:30 Review of Systems - Eyes Eyes: reports: Other (poor vision) - Ears, Nose & Throat Ears, Nose & Throat: reports: Hearing loss, Hearing aids - Musculoskeletal Musculoskeletal: reports: Stiffness, Limited range of motion, Joint pain, Other (L leg is getting painful muscle spasms post-op hip surg) - All Other Systems All Other Systems: reports: Reviewed and negative Exam - Vital Signs Vital Signs: Vital Signs x48h Temp Pulse Resp BP Pulse Ox 01/03/22 20:31 36.7 C 78 18 100/46 L 92 01/03/22 15:36 36.3 C L 68 15 104/46 L 91 L 01/03/22 13:11 66 18 104/63 95 - Physical Exam General Appearance: positive: No acute distress, Alert Eyes Bilateral: positive: Normal inspection, EOMI ENT: positive: ENT inspection nml, No signs of dehydration, Other (wearing hearing aids) Neck: positive: Nml inspection, No JVD Respiratory: positive: No respiratory distress, Breath sounds nml Cardiovascular: positive: Regular rate & rhythm, No murmur Abdomen: positive: Non-tender, No distention Skin: positive: Warm, Dry Extremities: positive: No pedal edema Neurologic/Psychiatric: positive: Oriented x3 Conclusion/Plan - Problem List (1) Hypertension Conclusion/Plan: Blood pressure is running "soft" at 90-110 systolic, likely due to n.p.o. status and narcotic use. Will order her beta-eileen to be used but placing hold parameters if blood pressure is too low. Will put a hold on her Valsartan, due to low BP. If she is being discharged tomorrow, I recommend not having her take the Valsartan for 3-4 days due to low BP, but she can take her Metoprolol, as it is necessary to use post VA. Qualifiers: Hypertension type: essential hypertension (2) Hx of coronary artery disease Conclusion/Plan: Continue the beta-eileen, as she is on it for post VA management and continue her aspirin which is also needed for DVT prophylaxis post hip surgery. Her statin should eventually continue every p.m. (3) Diet-controlled diabetes mellitus Conclusion/Plan: According to this chart, the orthopedic PA indicated the patient is a diet- controlled diabetic. The work-up from 12/11/2021 shows she had an A1c of 6.6. The patient claims she has never been told she has diabetes and is not on a diet, in fact she reported her high sugar foods: maple syrup, ice cream and also eats alot of [place] bread. I spent the time breaking the diagnosis that she is a borderline diabetic, to the patient, given the A1c of 6.5. We discussed that the first line of management is to change her diet, and I discussed details with her. Would recommend continuing the carb controlled diet, and also I ordered fingerstick checks to prevent hypoglycemia and also add a sliding scale of insulin. She strongly needs diabetic teaching. (4) Status post hip surgery Conclusion/Plan: Her usual dose of scheduled [place] should be continued while here, to prevent narcotic withdrawal. Will also order prn Flexeril for muscle spasm pain. Other management as per the Orthopedic team
[2022-01-03] MEDS ORDERED: CETIRIZINE 10 MG TABLET PO PRN (21:05)
[2022-01-03] MEDS ORDERED: NITROGLYCERIN SL 0.4 MG TABLET SL PRN (21:05)
[2022-01-03] MEDS ORDERED: HYDROcod/ACETAM 7.5 MG/325 MG TABLET PO PRN (21:05)
[2022-01-03] MEDS ORDERED: GABAPENTIN 300 MG CAPSULE PO SCH (22:00)
[2022-01-03] MEDS ORDERED: CYCLOBENZAPRINE 10 MG TABLET PO PRN (22:43)
[2022-01-04] MEDS: SODIUM CHLORIDE FLUSH 0.9% 10 ML SYRINGE IVP SCH ×2 (04:08→09:31)
[2022-01-04] MEDS: ACETAMINOPHEN 500 MG TABLET PO SCH (06:24)
[2022-01-04] MEDS: NS W/20 MEQ KCL 1,000 ML IV SCH (06:30)
[2022-01-04 07:37] LABS: BASOPHILS % (AUTO) 0.1 %; HCT - HEMATOCRIT 28.5 % (37.0-47.0); HGB - HEMOGLOBIN 9.4 g/dL (12.0-16.0); LYMPHOCYTES % (AUTO) 9.1 %; MEAN CORPUSCULAR HEMOGLOBIN 31.8 pg (27.0-31.0); MEAN CORPUSCULAR VOLUME 96.3 fL (81.0-99.0); MEAN PLATELET VOLUME 10.1 fL (7.9-10.8); MONOCYTES # (AUTO) 0.8 10^3/uL (0.0-1.0); MONOCYTES % (AUTO) 7.2 %; NEUTROPHILS # (AUTO) 9.3 10^3/uL (1.5-6.6); NEUTROPHILS % (AUTO) 83.2 %; PLT - PLATELET COUNT 166 10^3/uL (130-450); RED BLOOD COUNT 2.96 10^6/uL (4.20-5.40); RED CELL DISTRIBUTION WIDTH 13.2 % (12.0-15.0); WHITE BLOOD COUNT 11.2 x10^3/uL (4.8-10.8)
[2022-01-04] MEDS: INSULIN ASPART 300 UNIT/3 ML PEN SUBQ SCH ×2 (07:39→11:25)
[2022-01-04 07:45] LABS: CALCIUM 8.6 mg/dL (8.5-10.3); CREATININE 1.5 mg/dL (0.4-1.0); POTASSIUM 5.3 mmol/L (3.5-5.0)
--- NOTE | 2022-01-04 08:02 | PROVIDER PROGRESS NOTE ---
Assessment/Plan - Problem List (2) Diet-controlled diabetes mellitus Assessment/Plan: Hemoglobin A1c 6.4. Carb controlled diet. Accuchecks before every meal and at bedtime. Sliding scale insulin. (3) Hx of coronary artery disease Assessment/Plan: Metoprolol was held this morning due to systolic blood pressure in the 90s. (4) Status post hip surgery Assessment/Plan: Status post left total hip arthroplasty postop day #1. Patient worked well with PT/OT today. Pain management as needed. Anticipating discharge home later today 01/04/2022 by orthopedic surgery. (5) Hyperkalemia Assessment/Plan: Potassium this morning was 5.3. Patient had been receiving IV hydration with supplemental potassium at night. This was discontinued. She was given 1 L of normal saline over 4 hours. Will recheck potassium with labs in the afternoon. (6) Acute kidney injury Assessment/Plan: Likely secondary to volume depletion. Patient's systolic blood pressure was in the 90s this morning. She has been hydrated with normal saline 1000 mL over 4 hours. Recheck labs in the afternoon. - Current Meds Current Meds: Current Medications Generic Name Dose Route Start Last Admin Trade Name Freq PRN Reason Stop Dose Admin Acetaminophen 1,000 mg 01/03/22 12:00 01/04/22 06:24 Acetaminophen 500 Mg Tablet PO 1,000 mg Q6HR JEANA Administration Hydrocodone Bitart/Acetaminophen 1 tab 01/03/22 10:41 01/03/22 18:38 Hydrocod/Acetam 5/325 Mg Tablet PO 1 tab Q4HR PRN Administration PAIN Hydrocodone Bitart/Acetaminophen 1 tab 01/03/22 21:05 01/03/22 22:57 Hydrocod/Acetam 7.5 Mg/325 Mg Tablet PO 1 tab DAILY PRN Administration PAIN Alcohol 1 amp 01/03/22 21:00 01/03/22 20:13 Ethyl Alcohol 62% Swab Ampule WINIFRED 1 amp BID JEANA Administration Aspirin 81 mg 01/03/22 21:00 01/03/22 20:12 Aspirin Ec 81 Mg Tablet PO 81 mg BID JEANA Administration Celecoxib 200 mg 01/03/22 21:00 01/03/22 20:12 Celecoxib 100 Mg Capsule PO 200 mg BID JEANA Administration Cyclobenzaprine HCl 10 mg 01/03/22 22:43 01/03/22 22:57 Cyclobenzaprine 10 Mg Tablet PO 10 mg TID PRN Administration Spasms Gabapentin 300 mg 01/03/22 22:00 01/03/22 21:22 Gabapentin 300 Mg Capsule PO 300 mg HS JEANA Administration Potassium Chloride/Sodium Chloride 1,000 mls @ 100 mls/hr 01/03/22 11:00 0 01/04/22 06:30 Normal Saline 0.9% W/20 Meq Kcl IV 100 mls/hr .Q10H JEANA Administration Insulin Aspart 1 - 5 unit 01/04/22 08:00 01/04/22 07:39 Insulin Aspart 300 Unit/3 Ml Pen SUBQ Not Given 0800,1200,1700,2100 JEANA Protocol Sodium Chloride 10 ml 01/03/22 17:00 01/04/22 04:08 Sodium Chloride Flush 0.9% 10 Ml Syringe IVP Not Given 0100,0900,1700 JEANA - Lab Result Fish Bone Diagrams: 01/04/22 07:31 01/04/22 07:31 - Additional Planning My Orders: My Active Orders 01/05/22 05:00 BMP - BASIC METABOLIC PANEL [CHEM] DAILYLAB CBC - COMP BLD CT W/AUTO DIFF [HEME] DAILYLAB 01/06/22 05:00 BMP - BASIC METABOLIC PANEL [CHEM] DAILYLAB CBC - COMP BLD CT W/AUTO DIFF [HEME] DAILYLAB 01/07/22 05:00 BMP - BASIC METABOLIC PANEL [CHEM] DAILYLAB CBC - COMP BLD CT W/AUTO DIFF [HEME] DAILYLAB Subjective - Subjective Patient Reports: Other (Patient was resting comfortably in bed at time of exam. She denied chest pain, dyspnea, abdominal pain, nausea or vomiting. Denied hip pain when she is at rest.) Objective Vital Signs: Vital Signs - 24 hr 01/03/22 01/03/22 01/03/22 10:50 10:56 10:57 Temperature 36.5 C Heart Rate 56 L 55 L 53 L Heart Rate [ Brachial] Respiratory 16 16 14 Rate Blood Pressure 85/49 L 79/47 L 113/58 L Blood Pressure [Right Brachial artery] O2 Saturation 94 96 99 01/03/22 01/03/22 01/03/22 11:00 11:05 11:10 Temperature Heart Rate 61 56 L 57 L Heart Rate [ Brachial] Respiratory 18 18 17 Rate Blood Pressure 108/51 L 97/54 L 87/60 L Blood Pressure [Right Brachial artery] O2 Saturation 99 99 98 01/03/22 01/03/22 01/03/22 11:16 11:20 11:26 Temperature 36.4 C L Heart Rate 56 L 55 L 55 L Heart Rate [ Brachial] Respiratory 13 15 15 Rate Blood Pressure 82/60 L 95/51 L 91/52 L Blood Pressure [Right Brachial artery] O2 Saturation 100 99 97 01/03/22 01/03/22 01/03/22 11:31 11:35 11:50 Temperature 36.5 C 36.6 C Heart Rate 55 L 56 L Heart Rate [ 56 L Brachial] Respiratory 14 17 18 Rate Blood Pressure 85/70 L 95/60 Blood Pressure 92/52 L [Right Brachial artery] O2 Saturation 96 98 98 01/03/22 01/03/22 01/03/22 12:16 13:11 15:36 Temperature 36.3 C L Heart Rate Heart Rate [ 59 L 66 68 Brachial] Respiratory 17 18 15 Rate Blood Pressure Blood Pressure 111/55 L 104/63 104/46 L [Right Brachial artery] O2 Saturation 96 95 91 L 01/03/22 01/03/22 01/04/22 20:31 23:57 04:23 Temperature 36.7 C 36.6 C 36.6 C Heart Rate Heart Rate [ 78 76 75 Brachial] Respiratory 18 16 16 Rate Blood Pressure Blood Pressure 100/46 L 97/56 L 98/45 L [Right Brachial artery] O2 Saturation 92 93 90 L 01/04/22 07:31 Temperature 36.3 C L Heart Rate Heart Rate [ 73 Brachial] Respiratory 16 Rate Blood Pressure Blood Pressure 96/41 L [Right Brachial artery] O2 Saturation 92 Oxygen O2 Source Room air I&O (Last 24 Hrs): Intake and Output Totals x24h 01/02/22 01/03/22 01/04/22 23:59 23:59 23:59 Intake Total 9233.374 6921.333 Output Total 1310 200 Balance 410.450 2499.333 General: Alert, Oriented x3, Mild distress HEENT: PERRLA, EOMI Neck: Supple, No JVD Neuro: Alert, Non Focal, Oriented Times 3 Cardiovascular: Regular rate, Normal S1, Normal S2 Respiratory: Chest non-tender, No respiratory distress, Breath sounds nml Abdomen: Normal bowel sounds, Soft, No tenderness, No masses Extremities: No clubbing, No cyanosis, No edema Skin: No rashes, No breakdown, No significant lesion - Results Results: Laboratory Results WBC 11.2 x10^3/uL (4.8-10.8) H 01/04/22 07:31 RBC 2.96 10^6/uL (4.20-5.40) L 01/04/22 07:31 Hgb 9.4 g/dL (12.0-16.0) L 01/04/22 07:31 Hct 28.5 % (37.0-47.0) L 01/04/22 07:31 MCV 96.3 fL (81.0-99.0) 01/04/22 07:31 MCH 31.8 pg (27.0-31.0) H 01/04/22 07:31 MCHC 33.0 g/dL (32.0-36.0) 01/04/22 07:31 RDW 13.2 % (12.0-15.0) 01/04/22 07:31 Plt Count 166 10^3/uL (130-450) 01/04/22 07:31 MPV 10.1 fL (7.9-10.8) 01/04/22 07:31 Neut # (Auto) 9.3 10^3/uL (1.5-6.6) H 01/04/22 07:31 Lymph # (Auto) 1.0 10^3/uL (1.5-3.5) L 01/04/22 07:31 [place] # (Auto) 0.8 10^3/uL (0.0-1.0) 01/04/22 07:31 Eos # (Auto) 0.0 10^3/uL (0.0-0.7) 01/04/22 07:31 Baso # (Auto) 0.0 10^3/uL (0.0-0.1) 01/04/22 07:31 Absolute Nucleated RBC 0.00 x10^3/uL 01/04/22 07:31 Nucleated RBC % 0.0 /100WBC 01/04/22 07:31 Sodium 135 mmol/L (135-145) 01/04/22 07:31 Potassium 5.3 mmol/L (3.5-5.0) H 01/04/22 07:31 Chloride 105 mmol/L (101-111) 01/04/22 07:31 Carbon Dioxide 23 mmol/L (21-32) 01/04/22 07:31 Anion Gap 7.0 (6-13) 01/04/22 07:31 BUN 43 mg/dL (6-20) H 01/04/22 07:31 Creatinine 1.5 mg/dL (0.4-1.0) H 01/04/22 07:31 Estimated GFR (MDRD) 33 (>89) L 01/04/22 07:31 Glucose 136 mg/dL (70-100) H 01/04/22 07:31 POC Whole Bld Glucose 124 mg/dL (70 - 100) H 01/04/22 07:28 Calcium 8.6 mg/dL (8.5-10.3) 01/04/22 07:31 ABX Reporting Has patient been on IV antibiotics over the past 48 hours?: No
[2022-01-04] MEDS ORDERED: SODIUM CHLORIDE 0.9% 1,000 ML IV ONE (08:03)
--- NOTE | 2022-01-04 08:03 | PROVIDER PROGRESS NOTE ---
Subjective - General Procedure Date: 01/03/22 Post Op Days: 1 - Review of Systems Wound/Incisions: positive: Dressing dry and intact, No drainage. negative: Drainage, Erythema General: positive: No symptoms. negative: Fever, Chills Pulmonary: negative: Shortness of breath, Pleuritic chest pain Cardiovascular: negative: Chest pain, Palpitations, Dyspnea on exertion Gastrointestinal: negative: Nausea, Vomiting Musculoskeletal: positive: Joint pain (left hip). negative: Leg pain, Foot pain Skin: negative: Pallor, Diaphoresis, Bruising Psychiatric: positive: No symptoms All Other Systems: positive: Reviewed and negative Objective - Patient Data Reviewed Vital Signs: Yes Vital Signs: Vital Signs x48h Temp Pulse Resp BP Pulse Ox 01/04/22 07:31 36.3 C L 73 16 96/41 L 92 01/04/22 04:23 36.6 C 75 16 98/45 L 90 L 01/03/22 23:57 36.6 C 76 16 97/56 L 93 Weight: Weight 01/02/22 01/03/22 01/04/22 23:59 23:59 23:59 Weight (kg) 61.6 kg Intake & Output: Intake and Output Totals x24h 01/02/22 01/03/22 01/04/22 23:59 23:59 23:59 Intake Total 1705.263 9286.333 Output Total 1310 200 Balance 931.483 0103.333 - Lab Results Lab Results: 01/04/22 07:31 01/04/22 07:31 Other Lab Results: Lab Results x24hrs 01/04/22 01/04/22 01/04/22 Range/Units 07:31 07:31 07:28 WBC 11.2 H (4.8-10.8) x10^3/uL RBC 2.96 L (4.20-5.40) 10^6/uL Hgb 9.4 L (12.0-16.0) g/dL Hct 28.5 L (37.0-47.0) % MCV 96.3 (81.0-99.0) fL MCH 31.8 H (27.0-31.0) pg MCHC 33.0 (32.0-36.0) g/dL RDW 13.2 (12.0-15.0) % Plt Count 166 (130-450) 10^3/uL MPV 10.1 (7.9-10.8) fL Neut # (Auto) 9.3 H (1.5-6.6) 10^3/uL Lymph # (Auto) 1.0 L (1.5-3.5) 10^3/uL [place] # (Auto) 0.8 (0.0-1.0) 10^3/uL Eos # (Auto) 0.0 (0.0-0.7) 10^3/uL Baso # (Auto) 0.0 (0.0-0.1) 10^3/uL Absolute Nucleated RBC 0.00 x10^3/uL Nucleated RBC % 0.0 /100WBC Sodium 135 (135-145) mmol/L Potassium 5.3 H (3.5-5.0) mmol/L Chloride 105 (101-111) mmol/L Carbon Dioxide 23 (21-32) mmol/L Anion Gap 7.0 (6-13) BUN 43 H (6-20) mg/dL Creatinine 1.5 H (0.4-1.0) mg/dL Estimated GFR (MDRD) 33 L (>89) Glucose 136 H (70-100) mg/dL POC Whole Bld Glucose 124 H (70 - 100) mg/dL Calcium 8.6 (8.5-10.3) mg/dL - Imaging Results Radiology Imaging: positive: Final report received Imaging Results Comments: I have independently visualized X-rays of the pelvis taken on 01/03/2022 which show post operative changes after total hip arthroplasty with anatomic alignment of components. No acute fractures or dislocations. Good cortex thickness in the left femur. - Current Medications Current Medications: Current Medications Generic Name Dose Route Start Last Admin Trade Name Freq PRN Reason Stop Dose Admin Acetaminophen 1,000 mg 01/03/22 12:00 01/04/22 06:24 Acetaminophen 500 Mg Tablet PO 1,000 mg Q6HR JEANA Administration Hydrocodone Bitart/Acetaminophen 1 tab 01/03/22 10:41 01/03/22 18:38 Hydrocod/Acetam 5/325 Mg Tablet PO 1 tab Q4HR PRN Administration PAIN Hydrocodone Bitart/Acetaminophen 1 tab 01/03/22 21:05 01/03/22 22:57 Hydrocod/Acetam 7.5 Mg/325 Mg Tablet PO 1 tab DAILY PRN Administration PAIN Alcohol 1 amp 01/03/22 21:00 01/03/22 20:13 Ethyl Alcohol 62% Swab Ampule WINIFRED 1 amp BID JEANA Administration Aspirin 81 mg 01/03/22 21:00 01/03/22 20:12 Aspirin Ec 81 Mg Tablet PO 81 mg BID JEANA Administration Celecoxib 200 mg 01/03/22 21:00 01/03/22 20:12 Celecoxib 100 Mg Capsule PO 200 mg BID JEANA Administration Cyclobenzaprine HCl 10 mg 01/03/22 22:43 01/03/22 22:57 Cyclobenzaprine 10 Mg Tablet PO 10 mg TID PRN Administration Spasms Gabapentin 300 mg 01/03/22 22:00 01/03/22 21:22 Gabapentin 300 Mg Capsule PO 300 mg HS JEANA Administration Potassium Chloride/Sodium Chloride 1,000 mls @ 100 mls/hr 01/03/22 11:00 01/04/22 06:30 Normal Saline 0.9% W/20 Meq Kcl IV 100 mls/hr .Q10H JEANA Administration Insulin Aspart 1 - 5 unit 01/04/22 08:00 01/04/22 07:39 Insulin Aspart 300 Unit/3 Ml Pen SUBQ Not Given 0800,1200,1700,2100 [facility] Protocol Sodium Chloride 10 ml 01/03/22 17:00 01/04/22 04:08 Sodium Chloride Flush 0.9% 10 Ml Syringe IVP Not Given 0100,0900,1700 [facility] - Physical Exam Wound/Incisions: positive: Dressing dry and intact, No drainage. negative: Erythema General Appearance: positive: No acute distress, Alert. negative: Lethargic Respiratory: positive: No respiratory distress Skin: positive: Color nml, No rash, Warm, Dry Extremities: positive: Nml appearance, Other (Femoral nerve and siatic nerve in tact, neurovascularly intact to left lower extremity). negative: Pedal edema Neurologic/Psychiatric: positive: Oriented x3 Impression/Plan - Problem List Problem List: 81 year old female with a past medical history of hypertension, CKD3, coronary artery disease ([place] in 2012 with stent in LAD), hyperglycemia (A1c 6.6, patient denies awareness of diagnosis), chronic pain with long daily pain management ([place] 7.5/325, Gabapentin) who is post operative day 1 from a left total hip arthroplasty by Dr. Abdifatah Neal at [facility] on 01/03/2022. She is recovering well today with acceptable pain control. She has not been out of bed or worked with physical therapy yet. She is likely ready for discharge pending hospitalist and physical therapy agreement. PLAN: Discharge to home today after working with physical therapy Ambulate with walker at all times until instructed otherwise by your surgeon. Please refer to booklet provided at joint helm for instructions for ambulation Avoid crossing your legs to reduce chance of hip dislocation Follow the pre-operatively agreed upon pain regimen including ibuprofen, home [place] and tramadol. Please refer to your schedule in the joint helm booklet. Ice are to decrease pain and swelling Take Aspirin 81 mg twice daily for 6 weeks, then resume your home 81 mg daily after instructed by your surgeon Per hospitalist, restart your home Valsartan after you have returned home for 3- 4 days Leave dressing in place until follow up in office. You can shower with the dressing in place if it is dry and neat Please call the office if you experience fever, chills, chest pain, shortness of breath, nausea, vomiting, drainage or bleeding Appreciate input from hospitalist team for management of chronic medical conditions.
[2022-01-04] MEDS ORDERED: INSULIN REGULAR HUMAN 300 UNIT/3 ML VIAL IVP ONE (08:05)
[2022-01-04] MEDS ORDERED: DEXTROSE 50% ABBOJECT 25 GM/50 ML SYRINGE IVP ONE (08:05)
[2022-01-04] MEDS ORDERED: METOPROLOL TARTRATE 25 MG TABLET PO SCH (09:00)
[2022-01-04] MEDS ORDERED: SOLIFENACIN SUCCINATE 10 MG TABLET PO SCH (09:00)
[2022-01-04] MEDS ORDERED: CHOLECALCIFEROL 400 UNIT TABLET PO SCH (09:00)
[2022-01-04] MEDS: CELECOXIB 100 MG CAPSULE PO SCH (09:31)
[2022-01-04] MEDS: ASPIRIN EC 81 MG TABLET PO SCH (09:31)
[2022-01-04] MEDS: ethyl alcohoL 62% SWAB AMPULE NAS SCH (09:31)
[2022-01-04 10:24] LABS: ESTIMATED AVERAGE GLUCOSE 137 mg/dL (70-100); HEMOGLOBIN A1c% 6.4 % (4.27-6.07)
[2022-01-04] MEDS: HYDROcod/ACETAM 5/325 MG TABLET PO PRN ×2 (10:34→13:28)
[2022-01-04 13:53] VITALS: BP 105/54
[2022-01-04 14:06] LABS: CALCIUM 8.7 mg/dL (8.5-10.3); CREATININE 1.7 mg/dL (0.4-1.0); POTASSIUM 4.5 mmol/L (3.5-5.0)
== END 2022-01-04 14:50 | disposition home or self-care (01) ==
LOC: SDS 05:58 → MS2 10:41 → SDS 01-04 14:50
PROVIDERS: ATTEND Orthopaedic Surgery
DX: M16.12 Unilateral primary osteoarthritis, left hip (principal); I25.10 Atherosclerotic heart disease of native coronary artery without angina pectoris; E11.42 Type 2 diabetes mellitus with diabetic polyneuropathy; I25.2 Old myocardial infarction; Z87.891 Personal history of nicotine dependence; E87.5 Hyperkalemia; N17.9 Acute kidney failure, unspecified; E11.22 Type 2 diabetes mellitus with diabetic chronic kidney disease; I12.9 Hypertensive chronic kidney disease with stage 1 through stage 4 chronic kidney disease, or unspecified chronic kidney disease; N18.30 Chronic kidney disease, stage 3 unspecified; Z95.5 Presence of coronary angioplasty implant and graft; E11.65 Type 2 diabetes mellitus with hyperglycemia; G89.29 Other chronic pain; Z79.891 Long term (current) use of opiate analgesic
CPT/HCPCS: 27130; 36415; 72170; 80048; 83036; 85025; 97161; 97165; A9270; C1713; J0131; J0690; J3370; J7120

== ENCOUNTER 2022-03-21 09:51 | Outpatient (CLI) | payer MEDICARE, OTHER ==
[2022-03-21 10:20] LABS: BASOPHILS % (AUTO) 0.7 %; EOSINOPHILS # (AUTO) 0.3 10^3/uL (0.0-0.7); EOSINOPHILS % (AUTO) 4.3 %; HCT - HEMATOCRIT 37.3 % (37.0-47.0); HGB - HEMOGLOBIN 11.8 g/dL (12.0-16.0); LYMPHOCYTES # (AUTO) 1.4 10^3/uL (1.5-3.5); LYMPHOCYTES % (AUTO) 24.2 %; MEAN CORPUSCULAR HEMOGLOBIN 30.6 pg (27.0-31.0); MEAN CORPUSCULAR HGB CONC 31.6 g/dL (32.0-36.0); MEAN CORPUSCULAR VOLUME 96.9 fL (81.0-99.0); MEAN PLATELET VOLUME 9.7 fL (7.9-10.8); MONOCYTES # (AUTO) 0.6 10^3/uL (0.0-1.0); NEUTROPHILS # (AUTO) 3.5 10^3/uL (1.5-6.6); NEUTROPHILS % (AUTO) 59.5 %; PLT - PLATELET COUNT 193 10^3/uL (130-450); RED BLOOD COUNT 3.85 10^6/uL (4.20-5.40); WHITE BLOOD COUNT 5.8 x10^3/uL (4.8-10.8)
[2022-03-21 10:32] LABS: ALBUMIN 4.2 g/dL (3.2-5.5); ALBUMIN/GLOBULIN RATIO 1.4 (1.0-2.2); BILIRUBIN,TOTAL 0.8 mg/dL (0.2-1.0); CALCIUM 9.8 mg/dL (8.5-10.3); CREATININE 1.5 mg/dL (0.4-1.0); TOTAL PROTEIN 7.3 g/dL (6.7-8.2)
[2022-03-21 12:49] LABS: ESTIMATED AVERAGE GLUCOSE 123 mg/dL (70-100); HEMOGLOBIN A1c% 5.9 % (4.27-6.07)
== END 2022-03-21 09:52 | disposition home or self-care (01) ==
LOC: LAB 09:51
PROVIDERS: ATTEND Family Medicine
DX: E11.9 Type 2 diabetes mellitus without complications (principal); D62 Acute posthemorrhagic anemia; R60.9 Edema, unspecified
CPT/HCPCS: 36415; 80053; 83036; 83540; 84466; 85025

== ENCOUNTER 2022-08-20 12:39 | Outpatient (CLI) | payer MEDICARE, OTHER ==
--- NOTE | 2022-08-21 12:23 | Mammography Report ---
BILATERAL DIGITAL SCREENING MAMMOGRAM 3D/2D: 08/20/2022 CLINICAL: Routine screening. Comparison is made to exams dated: 12/17/2017 mammogram, 12/13/2016 mammogram, and 12/17/2014 mammogram - [facility]. Both breasts are heterogeneously dense, which may obscure small masses (category c / 51-75% glandular tissue). There are benign calcifications in both breasts. No significant masses, calcifications, or other findings are seen in either breast. There has been no significant interval change. IMPRESSION: BENIGN There is no mammographic evidence of malignancy. A 1 year screening mammogram is recommended. Based on the Tyrer Cuzick model (a risk assessment model) the patients lifetime risk is 8.9% and her 10 year risk is 0.0%. According to the ACR, ACS, and NCCN guidelines, an annual breast MRI exam jimenez g with mammogram is recommended if the patients lifetime risk is 20% or greater. This exam was interpreted at Station ID: [id number]. NOTE: For mammograms, a report in lay terms will be sent to the patient. Approximately 15% of breast malignancies will not be visualized mammographically. In the management of a palpable breast mass, a negative mammogram must not discourage biopsy of a clinically suspicious lesion. Electronically Signed By: Joni Santos M.D. [facility] [place]:08/20/2022 13:34:18 ACR BI-RADS Category 2: Benign Finding(s) 3342F PARENCHYMAL PATTERN: (D) - The breast(s) demonstrate(s) heterogeneously dense fibroglandular lesile cedeño. BI-RADS CATEGORY: (2) - 2 RECOMMENDATION: (ANNUAL) - Recommend routine annual screening mammography. [id number] 1 year screening LATERALITY: (B)
== END 2022-08-20 12:40 | disposition home or self-care (01) ==
LOC: DI 12:39
DX: Z12.31 Encounter for screening mammogram for malignant neoplasm of breast (principal)

== ENCOUNTER 2022-09-14 07:06 | Outpatient (CLI) | payer MEDICARE, OTHER ==
[2022-09-14 07:24] LABS: BASOPHILS % (AUTO) 0.7 %; EOSINOPHILS # (AUTO) 0.4 10^3/uL (0.0-0.7); EOSINOPHILS % (AUTO) 6.3 %; HCT - HEMATOCRIT 39.4 % (37.0-47.0); HGB - HEMOGLOBIN 12.8 g/dL (12.0-16.0); LYMPHOCYTES # (AUTO) 1.9 10^3/uL (1.5-3.5); MEAN CORPUSCULAR HEMOGLOBIN 31.5 pg (27.0-31.0); MEAN CORPUSCULAR HGB CONC 32.5 g/dL (32.0-36.0); MEAN PLATELET VOLUME 9.6 fL (7.9-10.8); MONOCYTES # (AUTO) 0.6 10^3/uL (0.0-1.0); MONOCYTES % (AUTO) 9.9 %; NEUTROPHILS # (AUTO) 2.9 10^3/uL (1.5-6.6); NEUTROPHILS % (AUTO) 49.9 %; PLT - PLATELET COUNT 193 10^3/uL (130-450); RED BLOOD COUNT 4.06 10^6/uL (4.20-5.40); RED CELL DISTRIBUTION WIDTH 13.5 % (12.0-15.0); WHITE BLOOD COUNT 5.8 x10^3/uL (4.8-10.8)
[2022-09-14 07:37] LABS: ALBUMIN 3.6 g/dL (3.2-5.5); ALBUMIN/GLOBULIN RATIO 1.1 (1.0-2.2); ALKALINE PHOSPHATASE 80 IU/L (42-121); ALT ALANINE AMINOTRANSFERASE 15 IU/L (10-60); AST ASPARTATE AMINOTRANSFERASE 19 IU/L (10-42); BILIRUBIN,TOTAL 0.6 mg/dL (0.2-1.0); BUN - BLOOD UREA NITROGEN 28 mg/dL (6-20); CALCIUM 9.6 mg/dL (8.5-10.3); CARBON DIOXIDE - CO2 27 mmol/L (21-32); CHLORIDE 106 mmol/L (101-111); CHOL/HDL RATIO 2.7 (<4.4); CHOLESTEROL 121 mg/dL; CREATININE 1.2 mg/dL (0.4-1.0); GFR - MDRD 43 (>89); GLUCOSE 93 mg/dL (70-100); HDL CHOLESTEROL 45 mg/dL; LDL CHOLESTEROL,CALCULATED 59 mg/dL; LDL/HDL RATIO 1.3 (<4.4); POTASSIUM 4.9 mmol/L (3.5-5.0); SODIUM 141 mmol/L (135-145); TOTAL PROTEIN 6.9 g/dL (6.7-8.2); TRIGLYCERIDES 83 mg/dL; VLDL CHOLESTEROL 17 mg/dL
[2022-09-14 07:49] LABS: THYROID STIMULATING HORMONE 3.52 uIU/mL (0.34-5.60)
[2022-09-14 09:21] LABS: ESTIMATED AVERAGE GLUCOSE 134 mg/dL (70-100); HEMOGLOBIN A1c% 6.3 % (4.27-6.07)
== END 2022-09-14 07:07 | disposition home or self-care (01) ==
LOC: LAB 07:06
PROVIDERS: ATTEND Family Medicine
DX: I10 Essential (primary) hypertension (principal); E11.9 Type 2 diabetes mellitus without complications; G62.9 Polyneuropathy, unspecified; M54.16 Radiculopathy, lumbar region; Z96.642 Presence of left artificial hip joint; M15.9 Polyosteoarthritis, unspecified
CPT/HCPCS: 36415; 80053; 80061; 83036; 83721; 84443; 85025

== ENCOUNTER 2023-01-22 09:45 | Outpatient (CLI) | payer MEDICARE, OTHER ==
--- NOTE | 2023-01-22 16:18 | XRAY Report ---
PROCEDURE: Hip 2 View LT INDICATIONS: LEFT TOTAL HIP ARTHROPLASTY F/U TECHNIQUE: 2 views of the hip were acquired. COMPARISON: 02/22/2022 FINDINGS: Bones: Status post left total hip arthroplasty. Stable postsurgical alignment. No evidence for hardw are loosening or failure. No acute fracture. Moderate-severe right hip osteoarthritic changes. Soft tissues: No suspicious soft tissue calcifications or masses. IMPRESSION: Stable appearance of left total hip arthroplasty without evidence for hardware complication. Mild interval progression of moderate-severe right hip osteoarthrosis. Reviewed by: Jose Romero MD on 01/22/2023 3:16 PM MA[facility] Approved by: Jose Romero MD on 01/22/2023 3:16 PM MAURILIO Station ID: [id number]
== END 2023-01-22 23:59 | disposition home or self-care (01) ==
LOC: DI.WOS 09:45
PROVIDERS: ATTEND Orthopaedic Surgery
DX: Z96.642 Presence of left artificial hip joint (principal); M16.11 Unilateral primary osteoarthritis, right hip

== ENCOUNTER 2023-05-09 10:43 | Day surgery (SDC) | payer MEDICARE, OTHER ==
[2023-05-09] MEDS ORDERED: ceFAZolin 2 GM VIAL ONE (11:02)
[2023-05-09] MEDS ORDERED: BUPIVACAINE 0.25% PF 30 ML VIAL ONE (11:05)
[2023-05-09] MEDS ORDERED: LACTATED RINGERS 1,000 ML IV ONE (11:05)
[2023-05-09] MEDS ORDERED: LIDOCAINE 1%-EPI 1:100000 20 ML MDV ONE (11:05)
[2023-05-09] MEDS ORDERED: PROPOFOL 500 MG/50 ML 500 MG/50 ML VIAL ONE (11:15)
--- NOTE | 2023-05-09 11:36 | ANESTHESIA ---
Pre-Anesthesia VS, & Labs - Diagnosis chemo- follicular lymphoma - Procedure portacath Vital Signs: Temp Pulse Resp BP Pulse Ox O2 Flow Rate 36.3 C L 69 14 140/69 H 95 05/09/23 11:05 05/09/23 11:05 05/09/23 11:05 05/09/23 11:05 05/09/23 11:05 Height: 5 ft 1 in Weight (kg): 57.5 kg Body Mass Index: 23.9 BMI Classification: Normal - NPO >8 hours - Is Patient ?: No - Lab Results Current Lab Results: Laboratory Tests 05/09/23 11:14: POC Whole Bld Glucose 84 Lab results reviewed: Yes Home Medications and Allergies Home Medications: Ambulatory Orders Acetaminophen [Tylenol] 650 mg PO Q6H PRN 05/07/23 Amox/Clav 500/125 [Augmentin 500/125] 1 tablet PO Q8H 05/07/23 Cetirizine HCl [Allergy] 10 mg PO DAILY PRN 05/07/23 Cholecalciferol [Vitamin D3] 50 mcg PO DAILY 05/07/23 HYDROmorphone [Dilaudid] 4 mg PO Q4H PRN 05/07/23 Ibuprofen [Advil] 200 mg PO PRN PRN 05/07/23 Nitroglycerin [Nitrostat] 0.4 mg SL [id number] 05/07/23 methocarbamoL [Methocarbamol] 500 mg PO Q6HR PRN 05/07/23 Aspirin Chewable [[facility] [place] Aspirin] 81 mg PO QPM 07/09/15 Atorvastatin Calcium 40 mg PO QPM 07/09/15 Metoprolol Tartrate [Lopressor] 25 mg PO BID 07/09/15 Valsartan [Diovan] 160 mg PO QPM 07/09/15 Gabapentin [Neurontin] 300 mg PO HS 12/22/21 Tolterodine Tartrate [Detrol LA] 4 mg PO DAILY 12/22/21 amLODIPine [Norvasc] 5 mg PO DAILY 03/29/23 Esomeprazole Magnesium 20 mg PO DAILY 04/03/23 Sucralfate [Carafate] 1 tablet PO QID 04/03/23 Acetaminophen [Tylenol] 650 mg PO Q6H PRN 05/07/23 Amox/Clav 500/125 [Augmentin 500/125] 1 tablet PO Q8H 05/07/23 Cetirizine HCl [Allergy] 10 mg PO DAILY PRN 05/07/23 Cholecalciferol [Vitamin D3] 50 mcg PO DAILY 05/07/23 HYDROmorphone [Dilaudid] 4 mg PO Q4H PRN 05/07/23 Ibuprofen [Advil] 200 mg PO PRN PRN 05/07/23 Nitroglycerin [Nitrostat] 0.4 mg SL [id number] 05/07/23 methocarbamoL [Methocarbamol] 500 mg PO Q6HR PRN 05/07/23 Allergies/Adverse Reactions: Allergies Allergy/AdvReac Type Severity Reaction Status Date / Time No Known Drug Allergies Allergy Verified 05/01/23 13:11 Anes History & Medical History - Anesthetic History Anesthesia Complications: reports: No previous complications Family history of Anesthesia Complications: Denies Family history of Malignant Hyperthermia: Denies - Medical History Cardiovascular: reports: Hypertension, High cholesterol, Coronary artery disease, [place] (s/p stents, no issues since) Pulmonary: reports: Pneumonia (hx) Gastrointestinal: reports: GERD (w/c), Hiatal hernia Urinary: reports: Nocturia, Other Neuro: reports: Peripheral neuropathy, Tremors Musculoskeletal: reports: Osteoarthritis, Chronic back pain Endocrine/Autoimmune: reports: None Blood Disorders: reports: None Skin: reports: None Smoking Status: Former smoker History of Cancer?: Yes - Surgical History General: reports: Appendectomy, Colonoscopy Eyes Ears Nose Throat (EENT): reports: Cataracts Cardiothoracic: reports: Coronary stent Orthopedic: reports: Hip replacement, Carpal Tunnel surgery, Spine surgery, Other Exam General: Alert, Oriented x3, Cooperative Dental: WNL Mouth Openin Fingerbreadth Neck Mobility: Normal Mallampati classification: II Thyromental Distance: 4-6 cm Respiratory: Lungs clear Cardiovascular: Regular rate Plan Anesthesia Type: General, MAC Consent for Procedure(s) Verified and Reviewed: Yes Code Status: Attempt Resuscitation ASA classification: 3-Severe systemic disease Is this case an emergency?: No
[2023-05-09] MEDS ORDERED: fentaNYL 100 MCG/2 ML VIAL IVP PRN (11:37)
[2023-05-09] MEDS ORDERED: HYDROmorphone 0.5 MG/0.5 ML SYRINGE IVP PRN (11:37)
[2023-05-09] MEDS ORDERED: ATROPINE ABBOJECT 1 MG/10 ML SYRINGE IVP PRN (11:37)
[2023-05-09] MEDS ORDERED: ePHEDrine 50 MG/ML VIAL IVP PRN (11:37)
[2023-05-09] MEDS ORDERED: ONDANSETRON 4 MG/2 ML VIAL IVP PRN (11:37)
[2023-05-09] MEDS ORDERED: NALOXONE 0.4 MG/ML VIAL IVP PRN (11:37)
--- NOTE | 2023-05-09 11:41 | HISTORY & PHYSICAL EXAMINATION ---
Chief Complaint - Chief Complaint Chief Complaint: here for port placement History of Present Illness - History Obtained From Records Reviewed: yes History obtained from: pt Exam Limitations: none - History of Present Illness HPI Comment/Other: recent diagnosis wide spread follicular lymphoma. chemotherapy and port recommended History - Past Medical History Cardiovascular: reports: Hypertension, High cholesterol, Coronary artery disease, [place] Respiratory: reports: Pneumonia Neuro: reports: Peripheral neuropathy, Tremors Endocrine/Autoimmune: reports: None GI: reports: Hiatal hernia CHOCOLATE COATER: reports: None : reports: Nocturia, Other HEENT: reports: Chronic vision loss, Chronic hearing loss Psych: reports: None Musculoskeletal: reports: Osteoarthritis, Chronic back pain Derm: reports: None MRSA Hx?: No - Past Surgical History General: reports: Appendectomy, Colonoscopy Ortho: reports: Hip replacement, Carpal Tunnel surgery, Spine surgery, Other Cardiovascular: reports: Coronary stent HEENT: reports: Cataracts - Family & Social History Family History: Mother: , Father: Family History Comment/Other: No diseases run in the family. Living Situation: With spouse/s.o. Social History Notes: She is an ex-smoker quit 50 years ago. She drinks 1 beer per day. She lives with her . She does a lot of gardening and outdoor activities - Substance History Use: Uses substance without health or social issues: Alcohol Meds/Allgy - Home Medications Home Medications: Ambulatory Orders Medication Instructions Recorded Confirmed Aspirin Chewable [[facility] 81 mg PO QPM 07/09/15 05/09/23 Aspirin] Atorvastatin Calcium 40 mg PO QPM 07/09/15 05/09/23 Metoprolol Tartrate [Lopressor] 25 mg PO BID 07/09/15 05/09/23 Valsartan [Diovan] 160 mg PO QPM 07/09/15 05/09/23 Gabapentin [Neurontin] 300 mg PO HS 12/22/21 05/09/23 Tolterodine Tartrate [Detrol LA] 4 mg PO DAILY 12/22/21 05/09/23 amLODIPine [Norvasc] 5 mg PO DAILY 03/29/23 05/09/23 Esomeprazole Magnesium 20 mg PO DAILY 04/03/23 05/09/23 Sucralfate [Carafate] 1 tablet PO QID 04/03/23 05/09/23 Acetaminophen [Tylenol] 650 mg PO Q6H PRN 05/07/23 05/09/23 Amox/Clav 500/125 [Augmentin 1 tablet PO Q8H 05/07/23 05/07/23 500/125] Cetirizine HCl [Allergy] 10 mg PO DAILY PRN 05/07/23 05/07/23 Cholecalciferol [Vitamin D3] 50 mcg PO DAILY 05/07/23 05/09/23 HYDROmorphone [Dilaudid] 4 mg PO Q4H PRN 05/07/23 05/09/23 Ibuprofen [Advil] 200 mg PO PRN PRN 05/07/23 05/07/23 Nitroglycerin [Nitrostat] 0.4 mg SL [id number] 05/07/23 05/07/23 methocarbamoL [Methocarbamol] 500 mg PO Q6HR PRN 05/07/23 05/07/23 - Allergies Allergies/Adverse Reactions: Allergies Allergy/AdvReac Type Severity Reaction Status Date / Time No Known Drug Allergies Allergy Verified 05/01/23 13:11 Review of Systems - Other Findings Other Findings: 10 pt ros as above otherwise unremarkable Exam - Vital Signs Vital Signs: Vital Signs x48h Temp Pulse Resp BP Pulse Ox 05/09/23 11:05 36.3 C L 69 14 140/69 H 95 - Physical Exam General Appearance: positive: No acute distress, Alert Eyes Bilateral: positive: PERRL, EOMI ENT: positive: No signs of dehydration Neck: positive: Thyroid nml, No JVD Respiratory: positive: No respiratory distress Cardiovascular: positive: Regular rate & rhythm Abdomen: positive: No distention Neurologic/Psychiatric: positive: Oriented x3 Conclusion/Plan - Problem List (1) Follicular lymphoma Conclusion/Plan: plan port placement. parq held and consent obtained
[2023-05-09] MEDS ORDERED: LACTATED RINGERS 1,000 ML IV SCH (12:00)
[2023-05-09] MEDS ORDERED: BUPIVACAINE 0.25% PF 30 ML VIAL SUBQ ONE ×2 (12:11)
[2023-05-09] MEDS ORDERED: LIDOCAINE 1%-EPI 1:100000 20 ML MDV SUBQ ONE ×2 (12:11)
[2023-05-09] MEDS ORDERED: ONDANSETRON 4 MG/2 ML VIAL ONE (12:50)
[2023-05-09] MEDS ORDERED: oxyCODONE 5 MG TABLET PO PRN (12:59)
[2023-05-09] MEDS ORDERED: LACTATED RINGERS 250 ML IV ONE (13:00)
--- NOTE | 2023-05-09 13:06 | OPERATIVE REPORT ---
Operative Report - General Procedure Date: 05/09/23 Planned Procedure: left subclavian power port placement Pre-Op Diagnosis: follicular lymphoma and need for chemotherapy port Procedure Performed: left subclavian power port placement fluoroscopic guidance Post Op Diagnosis: same - Procedure Note Primary Surgeon: evert rodríguez Anesthesia Technique: Local, MAC Pathology: none Estimated Blood Loss (mL): 2 Drain/Tube Type: Other (none) Indications: as above Findings: tip at svc/ ra junction good flush and flow Complications: none - Other Other Information/Narrative: The patient was properly identified brought to the operating room and placed in supine position. Monitored anesthesia care was given as well as IV sedation. A towel roll was placed under the upper back. The patient was prepped and draped in a sterile fashion and given preoperative antibiotics. Local anesthetic was given. The left subclavian vein was easily accessed second pass with a needle. Guide wire placed and position confirmed. A subcutaneous pocket on the left upper chest was created measuring approximately 2-1/2 cm. Portacatheter tubing was then placed subcutaneous up to the venous access point. The portacatheter tubing was then easily placed with the use of a dilator peel-away sheath. The tubing was aspirated and flushed with saline. Under fluoroscopic guidance the tubing was pulled back to the junction of the atrium and the superior vena cava. The portacatheter aspirated and flushed easily assuring good position. The portacatheter was then cut to size and further assembled. The port was secured to subcutaneous tissue with 2 interrupted 4-0 Prolene sutures. The port again was aspirated and flushed now with heparin. Buried interrupted subdermal 3-0 Vicryl sutures were then placed. Skin was closed with buried interrupted and running 4-0 Monocryl subcuticular suture. Dressing was applied. The patient tolerated the procedure well was awakened and brought to recovery in good condition.
--- NOTE | 2023-05-09 13:08 | ANESTHESIA POST OP EVALUATION ---
Anesthesia Post Eval - Post Anesthesia Eval Vitals: Last Vital Signs Temp 36.2 C L 05/09/23 12:53 Pulse 72 05/09/23 12:53 Resp 14 05/09/23 12:53 BP 104/75 05/09/23 12:53 Pulse Ox 100 05/09/23 12:53 O2 Flow Rate CV Function Including HR & BP: Stable Pain Control: Satisfactory Nausea & Vomiting: Negative Mental Status: Baseline Respiratory Status: Airway Patent Hydration Status: Satisfactory Anesthesia Complications: None
[2023-05-09 13:16] VITALS: O2SAT 100
[2023-05-09 13:37] VITALS: BP 126/59
--- NOTE | 2023-05-10 21:27 | XRAY Report ---
PROCEDURE: OR C-Arm Procedure INDICATIONS: Port placement FLUORO TIME: 0.6 TECHNIQUE: One intraoperative fluoroscopic COMPARISON: None. FINDINGS: Single intraoperative fluoroscopic image demonstrates the left-sided port catheter. Please see operat em report for details. Fluoroscopy time: 0.6 minutes Air Kerma: 7.9 mGy IMPRESSION: Single intraoperative fluoroscopic image demonstrates the left-sided port catheter. Please see operat em report for details. Reviewed by: Tammy Boykin MD on 05/10/2023 9:26 PM PDT Approved by: Tammy Boykin MD on 05/10/2023 9:26 PM PDT Station ID: [id number]
== END 2023-05-09 10:44 | disposition home or self-care (01) ==
LOC: SDS 10:43
PROVIDERS: ATTEND Surgery
DX: C82.90 Follicular lymphoma, unspecified, unspecified site (principal); Z87.891 Personal history of nicotine dependence; I25.10 Atherosclerotic heart disease of native coronary artery without angina pectoris; I25.2 Old myocardial infarction; Z95.5 Presence of coronary angioplasty implant and graft
CPT/HCPCS: 36561; C1788; J7120

== ENCOUNTER 2023-05-19 22:10 | Outpatient (CLI) | payer MEDICARE, OTHER | END 2023-05-19 22:11 | disposition critical access hospital (66) | LOC: EMS 22:10 | DX: R41.82 Altered mental status, unspecified (principal); R53.1 Weakness; R50.9 Fever, unspecified | CPT/HCPCS: A0425; A0427 ==

== ENCOUNTER 2023-05-19 22:20 | Emergency (ER) | payer MEDICARE, OTHER ==
--- NOTE | 2023-05-19 22:41 | ED Physician Documentation ---
PD HPI ALTERED MENTAL STATUS - Stated complaint Stated Complaint: DEC LOC, FEVER, CA - Chief complaint Chief Complaint: Fever - History obtained from History obtained from: Patient, Family (daughter noted pt to be confused and sluggish thinking when awoke from nap. Had felt weaker earlier in the day. Has new diagnosis of lymphoma in thigh, abdominal wall and back. Has had weakness of legs due to lymphoma near spine. Seeing Oncologist ? this coming week to initiate chemo at [facility] EMS (Medics report pt was somewhat confused to them on arrival but cleared enroute. Had 101.7 temp for them. Bp was slightly low. HR mild tachycardia.) - History of Present Illness Timing - onset: Today Timing - details: Abrupt onset, Now resolved (does not seem confused on arrival to ED, adn when daughter shows up, says that pt is close to baseline.) Quality / character: Confused Associated symptoms: Fever, General weakness. No: Headache, Stiff neck, Dyspnea, Cough, NVD, Focal weakness Contributing factors: Recent illness (new Dx in past couple weeks of lymphoma, seeing Oncology and starting chemo at [facility] ? this coming week.). No: Diabetic, New medication, Intoxicated Review of Systems Constitutional: reports: Fever (just this evening), Chills, Fatigue (for several weeks.). denies: Myalgias Nose: denies: Rhinorrhea / runny nose, Congestion Throat: denies: Sore throat Cardiac: denies: Chest pain / pressure Respiratory: denies: Cough GI: denies: Abdominal Pain, Vomiting, Diarrhea, Bloody / black stool : reports: Incontinent (for awhile). 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 : Nocturia, Other HEENT: Chronic vision loss, Chronic hearing loss Psych: None Musculoskeletal: Osteoarthritis, Chronic back pain Derm: None - Past Surgical History Past Surgical History: Yes General: Appendectomy, Colonoscopy Ortho: Hip replacement, Carpal Tunnel surgery, Spine surgery, Other Cardiovascular: Coronary stent HEENT: Cataracts - Present Medications Home Medications: Ambulatory Orders Medication Instructions Recorded Confirmed Aspirin Chewable [[facility] 81 mg PO QPM 07/09/15 05/20/23 Aspirin] Atorvastatin Calcium 40 mg PO QPM 07/09/15 05/20/23 Metoprolol Tartrate [Lopressor] 25 mg PO BID 07/09/15 05/20/23 Valsartan [Diovan] 160 mg PO QPM 07/09/15 05/20/23 Tolterodine Tartrate [Detrol LA] 4 mg PO DAILY 12/22/21 05/20/23 amLODIPine [Norvasc] 5 mg PO DAILY 03/29/23 05/20/23 Acetaminophen [Tylenol] 650 mg PO Q6H PRN 05/07/23 05/20/23 Cetirizine HCl [Allergy] 10 mg PO DAILY PRN 05/07/23 05/20/23 Cholecalciferol [Vitamin D3] 50 mcg PO DAILY 05/07/23 05/20/23 Pregabalin 50 mg PO DAILY 05/20/23 05/20/23 Pregabalin 100 mg PO BID 05/20/23 05/20/23 cephALEXin [Keflex] 500 mg PO TID #20 cap 05/20/23 fentaNYL 25 MCG PATCH [Duragesic 25 mcg TOP Q3D 05/20/23 05/20/23 25mcg] - Allergies Allergies/Adverse Reactions: Allergies Allergy/AdvReac Type Severity Reaction Status Date / Time No Known Drug Allergies Allergy Verified 05/19/23 22:37 - Social History Does the pt smoke?: No Smoking Status: Never smoker Does the pt drink ETOH?: Yes Does the pt have substance abuse?: No - Immunizations Immunizations are current?: Yes - POLST Patient has POLST: No PD ED PE NORMAL - Vitals Vital signs reviewed: Yes - General General: Alert and oriented X 3, No acute distress, Well developed/nourished - HEENT HEENT: Pharynx benign - Neck Neck: Supple, no meningeal sign, No adenopathy - Cardiac Cardiac: No murmur. No: RRR (mild tachycardia) - Respiratory Respiratory: Clear bilaterally - Abdomen Abdomen: Soft, Non tender, Non distended - Back Back: No CVA TTP - Derm Derm: Normal color, Warm and dry - Extremities Extremities: Normal ROM s pain, No edema, No calf tenderness / cord - Neuro Neuro: Alert and oriented X 3, No sensory deficit, Normal speech, Other (leg movement symmetric with ROM. Weak for attempting standing. ) Results - Vitals Vitals: Oxygen O2 Source Room air - Labs Labs: Microbiology 05/20/23 00:46 Urine Culture - Preliminary Urine,Catheterized Laboratory Tests 05/19/23 05/19/23 05/19/23 20:54 23:04 23:04 WBC 11.1 H RBC 3.05 L Hgb 9.4 L Hct 30.2 L MCV 99.0 MCH 30.8 MCHC 31.1 L RDW 15.9 H Plt Count 218 MPV 10.4 Neut # (Auto) 9.5 H Lymph # (Auto) 0.6 L Norton # (Auto) 0.9 Eos # (Auto) 0.0 Baso # (Auto) 0.0 Absolute Nucleated RBC 0.00 Nucleated RBC % 0.0 Sodium 135 Potassium 4.5 Chloride 102 Carbon Dioxide 25 Anion Gap 8.0 BUN 48 H Creatinine 1.7 H Estimated GFR (MDRD) 29 L Glucose 137 H Lactic Acid Calcium 8.4 L Magnesium 1.7 Total Bilirubin 0.5 AST 47 H ALT 19 Alkaline Phosphatase 71 Total Protein 5.6 L Albumin 3.2 Globulin 2.4 Albumin/Globulin Ratio 1.3 Lipase 23 Urine Color Urine Clarity Urine pH Ur Specific Novinger Urine Protein Urine Glucose (UA) Urine Ketones Urine Occult Blood Urine Nitrite Urine Bilirubin Urine Urobilinogen Ur Leukocyte Esterase Urine RBC Urine WBC Ur Squamous Epith Cells Urine Bacteria Ur Microscopic Review Urine Culture Comments Nasal Adenovirus (PCR) NOT DETECTED Nasal B. parapertussis DNA (PCR) NOT DETECTED Nasal Coronavir 229E PCR NOT DETECTED Nasal Coronavir HKU1 PCR NOT DETECTED Nasal Coronavir NL63 PCR NOT DETECTED Nasal Coronavir OC43 PCR NOT DETECTED Nasal Enterovir/Rhinovir PCR NOT DETECTED Nasal Influenza B PCR NOT DETECTED Nasal Influenza A PCR NOT DETECTED Nasal Parainfluen 1 PCR NOT DETECTED Nasal Parainfluen 2 PCR NOT DETECTED Nasal Parainfluen 3 PCR NOT DETECTED Nasal Parainfluen 4 PCR NOT DETECTED Nasal RSV (PCR) NOT DETECTED Nasal B.pertussis DNA PCR NOT DETECTED Nasal C.pneumoniae (PCR) NOT DETECTED Arcadio Human Metapneumo PCR NOT DETECTED Nasal M.pneumoniae (PCR) NOT DETECTED Nasal SARS-CoV-2 (PCR) NOT DETECTED 05/19/23 05/20/23 23:04 00:46 WBC RBC Hgb Hct MCV MCH MCHC RDW Plt Count MPV Neut # (Auto) Lymph # (Auto) Norton # (Auto) Eos # (Auto) Baso # (Auto) Absolute Nucleated RBC Nucleated RBC % Sodium Potassium Chloride Carbon Dioxide Anion Gap BUN Creatinine Estimated GFR (MDRD) Glucose Lactic Acid 1.0 Calcium Magnesium Total Bilirubin AST ALT Alkaline Phosphatase Total Protein Albumin Globulin Albumin/Globulin Ratio Lipase Urine Color YELLOW Urine Clarity CLOUDY Urine pH 5.5 Ur Specific Novinger >=1.030 H Urine Protein >=300 H Urine Glucose (UA) NEGATIVE Urine Ketones NEGATIVE Urine Occult Blood MODERATE H Urine Nitrite NEGATIVE Urine Bilirubin NEGATIVE Urine Urobilinogen 0.2 (NORMAL) Ur Leukocyte Esterase LARGE H Urine RBC 6-10 H Urine WBC >25 H Ur Squamous Epith Cells RARE Squamous Urine Bacteria Moderate H Ur Microscopic Review INDICATED Urine Culture Comments INDICATED Nasal Adenovirus (PCR) Nasal B. parapertussis DNA (PCR) Nasal Coronavir 229E PCR Nasal Coronavir HKU1 PCR Nasal Coronavir NL63 PCR Nasal Coronavir OC43 PCR Nasal Enterovir/Rhinovir PCR Nasal Influenza B PCR Nasal Influenza A PCR Nasal Parainfluen 1 PCR Nasal Parainfluen 2 PCR Nasal Parainfluen 3 PCR Nasal Parainfluen 4 PCR Nasal RSV (PCR) Nasal B.pertussis DNA PCR Nasal C.pneumoniae (PCR) Arcadio Human Metapneumo PCR Nasal M.pneumoniae (PCR) Nasal SARS-CoV-2 (PCR) PD Medical Decision Making - ED course Complexity details: reviewed results (labs do not indicate spesis with normal lactate and WBC only 11K mild elevated. Has UTI by UA and negative CXR and viral panel. Presume fever from UTI. Cr 1.7 suggesting some dehydration. Given IV fluids and abx. ), considered differential, d/w patient ED course: daughter states pt cannot walk well even with walker now due to weakness of legs from lymphoma in the back. Needs assistance home. Can sit in car/seat, so not qualify for EMS. We got her helped to car and family can call for Lit Assist from Fire Dept when gets home. They are working with getting her with wheelchair etc when going to clinic this coming week. Departure - Departure Disposition: Home, Self Care Clinical Impression: Malaise and fatigue, Weakness UTI (urinary tract infection) Qualifiers: Urinary tract infection type: acute cystitis Hematuria presence: with hematuria Qualified Code(s): N30.01 - Acute cystitis with hematuria Fever Qualifiers: Fever type: unspecified Qualified Code(s): R50.9 - Fever, unspecified Condition: Stable Record reviewed to determine appropriate education?: Yes Follow-Up: Barrera Frazier MD [Primary Care Provider] - Melba Martines ARNP [Provider Admit Priv/Credential] - Prescriptions: cephALEXin [Keflex] 500 mg PO TID #20 cap Comments: Your urine sample does show signs of an infection. This likely is the cause of your not feeling well and the fever today. We did do a viral respiratory panel test and you are negative for the major viruses such as COVID, flu, RSV, rhinovirus, parainfluenza and several others. Your chest x-ray is also clear without any signs of pneumonia. Your blood tests show some anemia comparable to prior blood test. A blood test called lactate was negative which would be indicative of sepsis or impending sepsis if it was positive. We can treat the bladder infection with cephalexin 3 times daily for the next week. Stay well-hydrated. See how well you feel over the next couple of days. Tylenol every 4-6 hours if needed for fevers or pains. I sent your prescription for the antibiotic to your preferred pharmacy. Forms: PCP List Discharge Date/Time: 05/20/23 02:25
[2023-05-19] MEDS ORDERED: ACETAMINOPHEN 325 MG TABLET PO STA (22:43)
[2023-05-19] MEDS ORDERED: SODIUM CHLORIDE 0.9% 500 ML IV STA (22:43)
--- NOTE | 2023-05-19 23:18 | XRAY Report ---
PROCEDURE: Chest 1 View X-Ray INDICATIONS: fever/ weakness TECHNIQUE: One view of the chest was acquired. COMPARISON: None. FINDINGS: Surgical changes and devices: Left chest wall port tip projects over the cavoatrial junction. Lungs and pleura: No pleural effusions or pneumothorax. Lungs are clear. Mediastinum: Mediastinal contours appear normal. Heart size is normal. Bones and chest wall: No suspicious bony lesions. Overlying soft tissues appear unremarkable. Ski n fold overlying the lateral right chest wall. IMPRESSION: No acute cardiopulmonary process. Reviewed by: Richar Arriaza on 05/19/2023 11:[address] [facility] Approved by: Richar Arriaza on 05/19/2023 11:[address] [facility] Station ID: [id number]
[2023-05-19 23:20] LABS: BASOPHILS % (AUTO) 0.4 %; EOSINOPHILS % (AUTO) 0.1 %; HCT - HEMATOCRIT 30.2 % (37.0-47.0); HGB - HEMOGLOBIN 9.4 g/dL (12.0-16.0); LYMPHOCYTES # (AUTO) 0.6 10^3/uL (1.5-3.5); LYMPHOCYTES % (AUTO) 5.3 %; MEAN CORPUSCULAR HEMOGLOBIN 30.8 pg (27.0-31.0); MEAN CORPUSCULAR HGB CONC 31.1 g/dL (32.0-36.0); MEAN PLATELET VOLUME 10.4 fL (7.9-10.8); MONOCYTES # (AUTO) 0.9 10^3/uL (0.0-1.0); MONOCYTES % (AUTO) 7.8 %; NEUTROPHILS # (AUTO) 9.5 10^3/uL (1.5-6.6); PLT - PLATELET COUNT 218 10^3/uL (130-450); RED BLOOD COUNT 3.05 10^6/uL (4.20-5.40); RED CELL DISTRIBUTION WIDTH 15.9 % (12.0-15.0); WHITE BLOOD COUNT 11.1 x10^3/uL (4.8-10.8)
[2023-05-19 23:38] LABS: ALBUMIN 3.2 g/dL (3.2-5.5); ALBUMIN/GLOBULIN RATIO 1.3 (1.0-2.2); BILIRUBIN,TOTAL 0.5 mg/dL (0.2-1.0); CALCIUM 8.4 mg/dL (8.5-10.3); CREATININE 1.7 mg/dL (0.6-1.3); MAGNESIUM 1.7 mg/dL (1.7-2.3); POTASSIUM 4.5 mmol/L (3.5-4.5); TOTAL PROTEIN 5.6 g/dL (6.4-8.9)
[2023-05-20] MEDS ORDERED: SODIUM CHLORIDE 0.9% 500 ML IV STA ×2 (00:03→01:38)
[2023-05-20 00:10] LABS: B. PARAPERTUSSIS- RESP PCR PAN NOT DETECTED; B. PERTUSSIS- RESP PCR PANEL NOT DETECTED; C. PNEUMONIAE- RESP PCR PANEL NOT DETECTED; CORONAVIRUS 229E-RESP PCR NOT DETECTED; CORONAVIRUS HKU1-RESP PCR NOT DETECTED; CORONAVIRUS NL63-RESP PCR NOT DETECTED; CORONAVIRUS OC43-RESP PCR NOT DETECTED; HUMAN METAPNEUMOVIRUS NOT DETECTED; INFLUENZA A- RESP PCR PANEL NOT DETECTED; INFLUENZA B - RESP PCR PANEL NOT DETECTED; M. PNEUMONIAE- RESP PCR PANEL NOT DETECTED; PARAINFLUENZA VIRUS 1 NOT DETECTED; PARAINFLUENZA VIRUS 2 NOT DETECTED; PARAINFLUENZA VIRUS 3 NOT DETECTED; PARAINFLUENZA VIRUS 4 NOT DETECTED; RHINOVIRUS/ENTEROVIRUS NOT DETECTED; RSV- RESP PCR PANEL NOT DETECTED; SARS-CoV-2 -RESP PCR PANEL NOT DETECTED
[2023-05-20 01:04] LABS: BILIRUBIN,URINE NEGATIVE (NEGATIVE); GLUCOSE, URINE (UA) NEGATIVE (NEGATIVE); KETONES,URINE (UA) NEGATIVE (NEGATIVE); LEUKOCYTE ESTERASE, URINE LARGE (NEGATIVE); NITRITE,URINE NEGATIVE (NEGATIVE); OCCULT BLOOD,URINE MODERATE (NEGATIVE); PH,URINE 5.5 PH (5.0-7.5); PROTEIN,URINE >=300 mg/dL (NEGATIVE); UROBILINOGEN,URINE 0.2 (NORMAL) E.U./dL (NORMAL)
[2023-05-20 01:14] LABS: CLARITY,URINE CLOUDY (CLEAR); WBC,URINE >25 /HPF (0-5)
[2023-05-20 01:15] LABS: BACTERIA,URINE Moderate /HPF (None Seen); SQUAMOUS EPITHELIAL CELL,UR RARE Squamous (<= Few)
[2023-05-20] MEDS ORDERED: cefTRIAXone 1 GM VIAL IVP STA (01:33)
[2023-05-20 02:27] VITALS: BP 97/47; O2SAT 93
== END 2023-05-20 02:25 | disposition home or self-care (01) ==
LOC: EDUNIT# → ED 22:20
DX: N30.01 Acute cystitis with hematuria (principal); R50.9 Fever, unspecified; I10 Essential (primary) hypertension; C85.98 Non-Hodgkin lymphoma, unspecified, lymph nodes of multiple sites; Z20.822 Contact with and (suspected) exposure to COVID-19
CPT/HCPCS: 36415; 71045; 80053; 81001; 83605; 83690; 83735; 85025; 87077; 87086; 87181; 87633; 96361; 96374; 99284; A9270; 81003

== ENCOUNTER 2023-07-17 17:17 | Outpatient (CLI) | payer MEDICARE, OTHER ==
[~2023-07-17 17:17] MED LIST: DIATRIZOATE MEGLU/DIATRIZO SOD 30 ML BOTTLE PO ONE; iohexoL-300 100 ML VIAL ONE
[2023-07-17] MEDS: iohexoL-300 100 ML VIAL IVP ONE (19:31)
--- NOTE | 2023-07-18 08:05 | CT Report ---
PROCEDURE: Chest W INDICATIONS: Lymphoma. Generalized weakness for 2 days CONTRAST: 100mL Omni 300 TECHNIQUE: After the administration of intravenous contrast, a CT scan of the chest was performed. Images were recorded and evaluated at appropriate window settings. Reformats: axial MIP of the chest, coronal and sagittal. For radiation dose reduction, the following was used: automated exposure control, adjustme nt of mA and/or kV according to patient size. COMPARISON: CT chest, 08/26/2014. FINDINGS: Image quality: Excellent. Lungs and pleura: No consolidation. No pleural effusions. No pneumothorax. No suspicious pulmonary n odules which require follow up. Mediastinum: Heart size is normal. No pericardial effusion. Severe coronary calcification. No large v essel abnormality. No mediastinal adenopathy by size criteria. Chest wall and lower neck: Thyroid is unremarkable. No axillary or supraclavicular adenopathy by size . Bones: There is a cortical lucency in the posterior aspect of the manubrium, unchanged. Moderate shipping and receiving associate arielle compression fracture of T12. Degenerative and postsurgical changes in the lower cervical spine. Upper Abdomen: Unremarkable. IMPRESSION: 1. No lymphadenopathy. 2. A cause for generalized weakness is not identified. 3. Severe coronary artery atherosclerosis. 4. Cortical lucency in the posterior aspect of the manubrium, unchanged since 2014. 5. Chronic moderate compression fracture of T12. Reviewed by: Trudy Linda MD on 07/18/2023 8:04 AM [facility] Approved by: Trudy Linda MD on 07/18/2023 8:04 AM PST Station ID: [id number]
--- NOTE | 2023-07-18 08:06 | CT Report ---
PROCEDURE: Abdomen/Pelvis W INDICATIONS: Lymphoma. Generalized weakness for 2 days. CONTRAST: 100mL Omni 300 TECHNIQUE: After the administration of intravenous contrast, a CT scan of the abdomen and pelvis was performed. Images were recorded and evaluated at appropriate window settings. Reformats: coronal and sagittal. F or radiation dose reduction, the following was used: automated exposure control, adjustment of mA and /or kV according to patient size. COMPARISON: None. FINDINGS: Image quality: Excellent. Lung bases: Please see separate CT report. Liver: No solid mass. Gallbladder and biliary tree: The gallbladder. No biliary dilation. Spleen: No splenomegaly. Pancreas: No pancreatic ductal dilation. Adrenals: No adrenal nodule. Kidneys and ureters: No hydronephrosis. No renal cystic lesion which requires follow up. No solid mas s. There is a small amount of perinephric fluid bilaterally. Bowel and peritoneum: No bowel distension. Mild thickening of gastric antrum. Mild diverticulosis. No acute diverticulitis. There is a large amount of stool in colon. Lymph nodes: No central or retroperitoneal adenopathy. Vessels: No infrarenal aortic aneurysm. Severe atherosclerotic calcifications. PELVIS Reproductive organs: Unremarkable. Bladder: No abnormal wall thickening, accounting for underdistention. Pelvic lymph nodes: No pelvic adenopathy by size criteria. Bones: No aggressive osseous abnormality. Left hip arthroplasty. Other: No significant ventral or inguinal hernia. IMPRESSION: 1. No lymphadenopathy in abdomen or pelvis. 2. No splenomegaly. 3. A cause for generalized weakness is not identified. 4. Please see body of report for other none acute findings. Reviewed by: Trudy Linda MD on 07/18/2023 8:05 AM [facility] Approved by: Trudy Linda MD on 07/18/2023 8:05 AM PST Station ID: [id number]
--- NOTE | 2023-07-18 08:11 | CT Report ---
PROCEDURE: Soft Tissue Neck W INDICATIONS: Lipoma. Generalized weakness for 2 days CONTRAST: 100mL Omni 300 TECHNIQUE: After the administration of intravenous contrast, 3.0 mm axial sections acquired from the sella to th e aortic arch. Additional oblique axial 3.0 mm sections acquired through the pharynx. 3 mm thick co julio reformats were generated. For radiation dose reduction, the following was used: automated exp osure control, adjustment of mA and/or kV according to patient size. COMPARISON: None. FINDINGS: Image quality: Excellent. Lymph nodes: No enlarged lymph nodes seen throughout the neck. Vessels: Visualized vasculature appears patent. Neck spaces: The oropharynx, nasopharynx, and pharynx demonstrate no mucosal lesions. The vocal cor ds, false vocal cords, pyriform sinuses, epiglottis, vallecula, and tongue base all appear normal. E xtramucosal spaces appear unremarkable. Glands: The parotid and submandibular glands appear normal. The thyroid is normal in size and there are no incidental findings. Miscellaneous: Visualized brain and orbits appear normal. Lung apices appear clear. Mild-to moderat e emphysema. Superficial soft tissues appear normal. Bones: Degenerative and postsurgical changes in cervical spine. No suspicious bony lesions. Visuali zed sinuses and mastoids appear unremarkable. IMPRESSION: 1. No cervical lymphadenopathy. 2. Mild-to moderate emphysema at lung apices. 3. Degenerative/postsurgical changes in cervical spine. CLINICAL RECOMMENDATION STATEMENTS: In patients <35 years with an ITN detected on CT, MRI, or extrathyroidal ultrasound, the Committee re commends further evaluation with dedicated thyroid ultrasound if the nodule is "e1 cm and has no susp icious imaging features, and if the patient has normal life expectancy. In patients "e35 years with an ITN detected on CT, MRI, or extrathyroidal ultrasound, the Committee r ecommends further evaluation with dedicated thyroid ultrasound if the nodule is "e1.5 cm and has no s uspicious imaging features, and if the patient has normal life expectancy. (ACR, 2014) Reviewed by: Trudy Linda MD on 07/18/2023 8:09 AM PST Approved by: Trudy Linda MD on 07/18/2023 8:09 AM PST Station ID: [id number]
--- NOTE | 2023-07-18 08:18 | CT Report ---
PROCEDURE: Lumbar Spine W INDICATIONS: LYMPHOMA CONTRAST: 100mL Omni 300 TECHNIQUE: After the administration of intravenous Isovue contrast, 3 mm thick sections acquired from the T12 le fernanda to the sacrum. Sagittal and coronal reformats were constructed. For radiation dose reduction, evert ren following was used: automated exposure control, adjustment of mA and/or kV according to patient s ize. COMPARISON: CT lumbar spine, 04/03/2023. MRI lumbar spine, 04/03/2023 and 02/13/2018. FINDINGS: Image quality: Excellent. Bones: There is grade 1 anterolisthesis of L4 on L5. Moderate chronic vertebral body compression fra cture of T12, unchanged in severity compared to the last exam dated 04/03/2023. No suspicious lytic o r blastic bony lesions. The level degenerative disc and facet disease in lumbar spine, moderate at L 1-L2, L5 L5 and L5-S1, mild at other levels. Moderate bilateral facet arthropathy at L4-L5 and L5-S1. Central spinal caliber is narrowed at L4-L5. Ohei-wn-quujpqld lateral foraminal stenosis, moderate a t L1-L2, L2-3, L3-L4 and L4-L5. No pars defects. Soft tissues: No retroperitoneal masses or hematomas. Visualized aorta is normal in caliber. Sever e atherosclerotic calcifications. IMPRESSION: 1. No acute abnormalities seen on CT. Recommend MRI with and without contrast for further evaluation in this patient with lymphoma. 2. Moderate compression fracture of T12. 3. Multilevel degenerative disc and facet disease. 4. Severe atherosclerosis. Reviewed by: Trudy Linda MD on 07/18/2023 8:17 AM PST Approved by: Trudy Linda MD on 07/18/2023 8:17 AM PST Station ID: [id number]
--- NOTE | 2023-07-18 08:22 | CT Report ---
PROCEDURE: Thoracic Spine W INDICATIONS: LYMPHOMA CONTRAST: 100mL Omni 300 TECHNIQUE: After the administration of intravenous Isovue contrast, 3 mm thick sections acquired through the lev els of interest. Sagittal and coronal reformats were then constructed. For radiation dose reduction, the following was used: automated exposure control, adjustment of mA and/or kV according to patient size. COMPARISON: CT thoracic spine, 04/03/2023. MRI thoracic spine, 04/03/2023 FINDINGS: Image quality: Excellent. Bones: Mild kyphosis. Osteopenia. There is normal bony alignment. Stable moderate chronic compressio n fracture of T12. Multilevel degenerative disc disease, severe in the lower cervical spine, mild-to- moderate in thoracic spine. Surgical changes noted in cervical spine. No high-grade central canal cortney nosis. Atherosclerotic calcifications noted. Soft tissues: No soft tissue mass. IMPRESSION: 1. No acute abnormalities identified in on CT. Recommend MRI with and without contrast for further ev aluation in this patient with history of lymphoma. 2. Moderate chronic compression fracture of T12. 3. Multilevel degenerative disc disease. Reviewed by: Trudy Linda MD on 07/18/2023 8:20 AM PST Approved by: Trudy Linda MD on 07/18/2023 8:20 AM PST Station ID: [id number]
== END 2023-07-17 17:18 | disposition home or self-care (01) ==
LOC: DI 17:17
PROVIDERS: ATTEND Internal Medicine
DX: C85.90 Non-Hodgkin lymphoma, unspecified, unspecified site (principal); M48.54XD Collapsed vertebra, not elsewhere classified, thoracic region, subsequent encounter for fracture with routine healing; M51.34 Other intervertebral disc degeneration, thoracic region; M47.816 Spondylosis without myelopathy or radiculopathy, lumbar region; M51.36 Other intervertebral disc degeneration, lumbar region; M48.061 Spinal stenosis, lumbar region without neurogenic claudication; I25.10 Atherosclerotic heart disease of native coronary artery without angina pectoris
CPT/HCPCS: 70491; 71260; 72129; 72132; 74177; Q9963; Q9967

== ENCOUNTER 2023-07-23 13:26 | Outpatient (CLI) | payer MEDICARE, OTHER ==
[~2023-07-23 13:26] MED LIST changes: -DIATRIZOATE MEGLU/DIATRIZO SOD 30 ML BOTTLE PO ONE; +GADOTERATE MEGLUMINE 5 MMOL/10 ML VIAL ONE; -iohexoL-300 100 ML VIAL ONE
== END 2023-07-23 23:59 | disposition home or self-care (01) ==
LOC: DI 13:26
PROVIDERS: ATTEND Internal Medicine
DX: C82.88 Other types of follicular lymphoma, lymph nodes of multiple sites (principal)

== ENCOUNTER 2023-07-23 15:32 | Emergency (ER) | payer MEDICARE, OTHER ==
[2023-07-23] MEDS ORDERED: diphenhydrAMINE INJ 50 MG/ML VIAL IVP STA (16:02)
[2023-07-23] MEDS ORDERED: METOCLOPRAMIDE 10 MG/2 ML VIAL IVP STA (16:02)
[2023-07-23] MEDS ORDERED: SODIUM CHLORIDE 0.9% 1,000 ML IV STA (16:02)
[2023-07-23 16:17] LABS: BASOPHILS % (AUTO) 0.2 %; EOSINOPHILS # (AUTO) 0.1 10^3/uL (0.0-0.7); EOSINOPHILS % (AUTO) 2.2 %; HCT - HEMATOCRIT 35.4 % (37.0-47.0); HGB - HEMOGLOBIN 11.7 g/dL (12.0-16.0); LYMPHOCYTES % (AUTO) 0.8 %; MEAN CORPUSCULAR HEMOGLOBIN 29.8 pg (27.0-31.0); MEAN CORPUSCULAR HGB CONC 33.1 g/dL (32.0-36.0); MEAN CORPUSCULAR VOLUME 90.1 fL (81.0-99.0); MEAN PLATELET VOLUME 10.2 fL (7.9-10.8); MONOCYTES # (AUTO) 0.4 10^3/uL (0.0-1.0); MONOCYTES % (AUTO) 6.8 %; NEUTROPHILS # (AUTO) 4.6 10^3/uL (1.5-6.6); NEUTROPHILS % (AUTO) 89.2 %; PLT - PLATELET COUNT 117 10^3/uL (130-450); RED BLOOD COUNT 3.93 10^6/uL (4.20-5.40); WHITE BLOOD COUNT 5.1 x10^3/uL (4.8-10.8)
[2023-07-23 16:54] LABS: ALBUMIN 3.5 g/dL (3.2-5.5); ALBUMIN/GLOBULIN RATIO 1.4 (1.0-2.2); BILIRUBIN,TOTAL 0.7 mg/dL (0.2-1.0); CALCIUM 9.1 mg/dL (8.5-10.3); CREATININE 0.8 mg/dL (0.6-1.3); POTASSIUM 3.7 mmol/L (3.5-4.5)
--- NOTE | 2023-07-23 17:01 | ED Physician Documentation ---
History of Present Illness - Stated complaint Stated Complaint: BODY PX,MIGRAINE - Chief complaint Chief Complaint: Neuro - History obtained from History obtained from: Patient - Additonal information Additional information: Patient is an 82-year-old female with a history of lymphoma presenting for evaluation of migraine headache that has been present for the past 6 days and unrelenting despite her usual medications at home including p.o. Dilaudid. She additionally has been having diplopia out of the left eye which has been ongoing for the past 5 to 6 weeks after restarting Lyrica. She did initially have the diplopia when she was initially diagnosed with her lymphoma in the fall but it did stop briefly before returning again. She additionally has been having increasing weakness in her legs over the past 2 months.Patient also reports having an episode of chest pain last night that resolved with nitroglycerin. No chest pain today. No cough, congestion, fevers, abdominal pain, dysuria or urinary retention.Patient had multiple CTs 6 days ago and was scheduled for outpatient MRI of thoracic and lumbar spine related to her leg weakness but was [place] [facility] [place] and directed to the emergency department for more thorough evaluation. Review of Systems Constitutional: denies: Fever Cardiac: denies: Chest pain / pressure Respiratory: denies: Dyspnea GI: reports: Nausea. denies: Abdominal Pain, Vomiting, Diarrhea : denies: Dysuria Neurologic: reports: Headache. denies: Syncope PD PAST MEDICAL HISTORY - Past Medical History Past Medical History: Yes Cardiovascular: Hypertension, High cholesterol, Coronary artery disease, [place] Respiratory: Pneumonia Neuro: Peripheral neuropathy, Tremors Endocrine/Autoimmune: None GI: Hiatal hernia MICROSCOPIST: None : Nocturia, Other HEENT: Chronic vision loss, Chronic hearing loss Psych: None Musculoskeletal: Osteoarthritis, Chronic back pain Derm: None - Past Surgical History Past Surgical History: Yes General: Appendectomy, Colonoscopy Ortho: Hip replacement, Carpal Tunnel surgery, Spine surgery, Other Cardiovascular: Coronary stent HEENT: Cataracts - Present Medications Home Medications: Ambulatory Orders Medication Instructions Recorded Confirmed Aspirin Chewable [[facility] [place] 81 mg PO QPM 07/09/15 07/17/23 Aspirin] Atorvastatin Calcium 40 mg PO QPM 07/09/15 07/17/23 Metoprolol Tartrate [Lopressor] 25 mg PO BID 07/09/15 07/17/23 Valsartan [Diovan] 160 mg PO QPM 07/09/15 07/17/23 Tolterodine Tartrate [Detrol LA] 4 mg PO DAILY 12/22/21 07/17/23 amLODIPine [Norvasc] 5 mg PO DAILY 03/29/23 07/17/23 Acetaminophen [Tylenol] 650 mg PO Q6H PRN 05/07/23 07/17/23 Cetirizine HCl [Allergy] 10 mg PO DAILY PRN 05/07/23 07/17/23 Cholecalciferol [Vitamin D3] 50 mcg PO DAILY 05/07/23 07/17/23 Pregabalin 100 mg PO UD 05/20/23 07/17/23 cephALEXin [Keflex] 500 mg PO TID #20 cap 05/20/23 07/17/23 fentaNYL 25 MCG PATCH [Duragesic 25 mcg TOP Q3D 05/20/23 07/17/23 25mcg] Lidocaine/Prilocain 2.5% Cream 1 each TP 05/23/23 [Emla 2.5% Cream] Ondansetron HCl 4 mg PO Q4HR PRN 05/23/23 07/17/23 Prochlorperazine Maleate 10 mg PO Q4HR PRN 05/23/23 07/17/23 [Compazine] - Allergies Allergies/Adverse Reactions: Allergies Allergy/AdvReac Type Severity Reaction Status Date / Time obinutuzumab AdvReac Intermediate Dizziness/Chest Verified 06/03/23 11:43 Heaviness - Social History Does the pt smoke?: No Smoking Status: Never smoker Does the pt drink ETOH?: Yes Does the pt have substance abuse?: No - Immunizations Immunizations are current?: Yes - POLST Patient has POLST: No PD ED PE NORMAL - General General: Alert and oriented X 3, No acute distress, Well developed/nourished - HEENT HEENT: Atraumatic, PERRL, EOMI, Moist mucous membranes, Pharynx benign - Neck Neck: Supple, no meningeal sign - Cardiac Cardiac: RRR, Strong equal pulses - Respiratory Respiratory: No respiratory distress, Clear bilaterally - Abdomen Abdomen: Normal bowel sounds, Soft, Non tender, Non distended - Derm Derm: Warm and dry - Extremities Extremities: No edema - Neuro Neuro: Alert and oriented X 3, No motor deficit, Normal speech Results - Vitals Vitals: Vital Signs - 24 hr 07/23/23 07/23/23 15:43 16:18 Temperature 36.4 C L Heart Rate 64 55 L Respiratory 16 20 Rate Blood Pressure 142/90 H O2 Saturation 98 98 Oxygen O2 Source Room air - EKG (time done) 1624 EKG releavant findings:: EKG personally interpreted by author of this note. Relevant findings are: Rate 55, Sinus bradycardia, incomplete right bundle branch block, Motion artifact at the baseline,no STEMI - Labs Labs: Laboratory Tests 07/23/23 07/23/23 16:11 16:11 WBC 5.1 RBC 3.93 L Hgb 11.7 L Hct 35.4 L MCV 90.1 MCH 29.8 MCHC 33.1 RDW 14.0 Plt Count 117 L MPV 10.2 Neut # (Auto) 4.6 Lymph # (Auto) 0.0 L [place] # (Auto) 0.4 Eos # (Auto) 0.1 Baso # (Auto) 0.0 Absolute Nucleated RBC 0.00 Nucleated RBC % 0.0 Sodium 130 L Potassium 3.7 Chloride 94 L Carbon Dioxide 27 Anion Gap 9.0 BUN 18 Creatinine 0.8 Estimated GFR (MDRD) 69 L Glucose 91 Calcium 9.1 Total Bilirubin 0.7 AST 18 ALT 15 Alkaline Phosphatase 74 Troponin I High Sens 6.0 Total Protein 6.0 L Albumin 3.5 Globulin 2.5 Albumin/Globulin Ratio 1.4 Lipase 19 PD Medical Decision Making - ED course ED course: Pt presenting with history of lymphoma and recent symptoms to include headache, worsening back pain, worsening leg weakness, double vision in L eye for weeks. Outpatient MRIs scheduled for today of T and L spine. I have ordered these along with MRI brain. Workup also includes EKG, CBC, chemistries, UA, troponin (reported CP yesterday). UA pending but other labs without acute findings other than mild hyponatremia 130. Pt received IV benadryl, reglan for headache and morphine for pain. Pt still in MRI at shift change and signed out to Dr. Obrien to follow up on imaging results and reevaluate patient. Departure - Departure Forms: PCP List
[2023-07-23] MEDS ORDERED: MORPHINE 2 MG/ML CARPUJECT IVP STA (17:16)
[2023-07-23] MEDS ORDERED: GADOTERATE MEGLUMINE 5 MMOL/10 ML VIAL IVP ONE (18:18)
--- NOTE | 2023-07-23 19:57 | XRAY Report ---
PROCEDURE: Chest 1V INDICATIONS: CP/WEAK TECHNIQUE: One view of the chest was acquired. COMPARISON: Chest radiograph 05/19/2023. FINDINGS: Surgical changes and devices: Left chest wall port with distal tip overlying the lower SVC. Partia lly evaluated lower cervical spine hardware. Lungs and pleura: No large pleural effusions or pneumothorax. Low lung volumes. No focal airspace co nsolidation Mediastinum: Mediastinal contours appear normal. Heart size is normal. Bones and chest wall: No suspicious bony lesions. Overlying soft tissues appear unremarkable. IMPRESSION: Low lung volumes. No focal airspace consolidation. Reviewed by: Ilda Ponce MD on 07/23/2023 7:56 PM PST Approved by: Ilda Ponce MD on 07/23/2023 7:56 PM PST Station ID: [id number]
[2023-07-23] MEDS ORDERED: HYDROmorphone 1 MG/ML CARPUJECT IVP STA ×3 (20:02→21:45)
--- NOTE | 2023-07-23 21:05 | MRI Report ---
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 Evaluate for leptomeningeal disease CONTRAST: 9ml clariscan TECHNIQUE: Noncontrast axial T1 spin echo, axial T2 fast spin echo, sagittal and axial FLAIR, coronal T2 fast sp in echo, axial gradient echo, axial diffusion and ADC through the brain. After the administration of contrast, axial and coronal T1 spin echo with fat saturation through the brain. COMPARISON: Brain MRI 05/03/2023. FINDINGS: Image quality: Diagnostic. CSF spaces: Basal cisterns are patent. No extra-axial fluid collections. Ventricles are normal in size and shape. Brain: No midline shift. No intracranial bleeds or masses. No abnormal intracranial enhancement. There is cerebral volume loss for age. There is periventricular white matter chronic small vessel is chemic change. The brainstem appears normal. Diffusion-weighted images demonstrate no acute ischemi c insults. Moderate atrophy and mild white matter chronic ischemic change. Skull and face: Calvarial marrow is normal in signal. Orbits appear normal. Bilateral intraocular lens replacements are present. Sinuses: Sinuses and mastoids appear clear. IMPRESSION: Moderate atrophy and mild white matter chronic ischemic changes without acute infarct, h emorrhage or mass lesion. No leptomeningeal disease. Reviewed by: Ilda Ponce MD on 07/23/2023 9:04 PM PST Approved by: Ilda Ponce MD on 07/23/2023 9:04 PM PST Station ID: [id number]
--- NOTE | 2023-07-23 21:42 | MRI Report ---
PROCEDURE: LUMBAR SPINE W/WO INDICATIONS: cancer/worsening leg weakness, 82-year-old with history of lymphoma CONTRAST: 9ml clariscan TECHNIQUE: Noncontrast sagittal T1 spin echo and T2 fast spin echo, sagittal STIR, axial T1 and T2 fast spin ech o through the lumbar spine. In cases with scoliosis, additional coronal T2 fast spin echo may be per formed. After the administration of contrast, sagittal and axial T1 spin echo with fat saturation th rough the lumbar spine. COMPARISON: CT lumbar spine 07/17/2023, MRI lumbar spine 04/03/2023. FINDINGS: Image quality: Diagnostic. Alignment and curvature: Grade 1 anterolisthesis of L4 and L5. Trace retrolisthesis of L1 on L2. Marrow: There is again seen diffuse heterogeneous bone marrow signal and enhancement consistent with infiltrative marrow process. Chronic T12 superior endplate compression deformity, not significantly changed compared to prior. No acute vertebral body compression fracture. Spinal cord: Conus medullaris terminates at the L1-L2 level. Visualized spinal cord demonstrates no rmal signal, without suspicious enhancement. Paraspinous soft tissues: No paravertebral masses or abnormal enhancement. There is redemonstration of abnormal enhancing ill-defined right paravertebral soft tissue at the lev el of L1-L2. Additional enhancing epidural soft tissue from the level of T11-L1, overall not signific antly changed compared to prior. Multilevel degenerative changes including small disc bulges are seen throughout the lumbar spine with resulting narrowing of the spinal canal, moderate to severe at L4-L 5. Overall not significantly changed since prior. IMPRESSION: No significant change in irregular enhancing diffuse heterogeneous bone marrow signal and enhancement consistent with infiltrative marrow process. Compared to prior MRI 04/03/2023, no significant change in right paravertebral soft tissue mass lesion at L1-L2 and enhancing epidural soft tissue at T11-L1. Findings are concerning for metastatic disease. Multilevel discogenic degeneration with multilevel spinal canal narrowing, moderate to severe at L4-L 5. Chronic compression deformity of T12. Reviewed by: Ilda Ponce MD on 07/23/2023 9:41 PM PST Approved by: Ilda Ponce MD on 07/23/2023 9:41 PM PST Station ID: [id number]
--- NOTE | 2023-07-23 21:48 | MRI Report ---
PROCEDURE: THORACIC SPINE W/WO INDICATIONS: cancer/worsening leg weakness CONTRAST: 9ml clariscan TECHNIQUE: Noncontrast sagittal T1 spin echo and T2 fast spin echo, sagittal STIR, axial T1 and T2 fast spin ech o through the thoracic spine. After the administration of contrast, axial and sagittal T1 spin echo with fat saturation through the thoracic spine. COMPARISON: Thoracic MRI 04/03/2023, same day MRI lumbar spine 07/23/2023. FINDINGS: Image quality: Diagnostic. Alignment and curvature: There is normal bony alignment. Marrow: Diffuse heterogeneous bone marrow signal enhancement consistent with infiltrative marrow proc ess. Chronic T12 superior endplate compression deformity, no significant change compared to prior. No acute vertebral body compression fracture. Spinal cord: Visualized spinal cord is of normal signal and size, without abnormal enhancement. Paraspinous soft tissues: Similar ill-defined right paravertebral soft tissue at levels L1-L2. Simila r enhancing epidural soft tissue from the level of T11-L1, overall not significantly changed compared to prior MRI. Multilevel degenerative changes without high-grade spinal canal or neural foraminal narrowing. IMPRESSION: Compared to prior MRI 04/03/2023, no significant change in ill-defined right paravertebral enhancing s oft tissue at L1-L2 and enhancing epidural soft tissue at T11-L1, concerning for metastatic disease. Chronic T12 compression deformity. No acute osseous abnormality. Diffuse abnormal bone marrow signal with enhancing lesions, similar to prior. Reviewed by: Ilda Ponce MD on 07/23/2023 9:47 PM PST Approved by: Ilda Ponce MD on 07/23/2023 9:47 PM PST Station ID: [id number]
--- NOTE | 2023-07-23 21:49 | ED Physician Documentation ---
ED Addendum - Addendum Addendum: 07/23/23 21:[address] Agosto. Briefly this is an 82-year-old woman with lymphoma who has uncontrolled pain, unclear if this is neuropathy, chemotherapy side effect, or recurrence of disease. She had been waiting quite some time for MRI imaging of the brain and spine. At the time of this writing the brain MRI is complete with only age-related findings, the spinal MRIs, both thoracic and lumbar pending. Patient and family friends retired of the weight and wanted to go home. She has follow-up tomorrow with her palliative care [employer] who sent her here so probably could get results from her tomorrow. In the meantime her pain has been much worse since the cessation of pregabalin. She had some things going on that work felt to be side effects from the pregabalin but since stopping the pregabalin those "side effects" had not abated so seems reasonable to restart her pregabalin as it was helping her pain significantly. Disposition: Discharged home Condition: Stable Diagnosis: 1. Lymphoma 2. Weakness 3. Peripheral neuropathy 4. Diplopia
[2023-07-23 21:56] VITALS: BP 147/74; O2SAT 93
== END 2023-07-23 22:05 | disposition home or self-care (01) ==
LOC: ED 15:32
DX: C85.90 Non-Hodgkin lymphoma, unspecified, unspecified site (principal); R53.1 Weakness; H53.2 Diplopia; G62.9 Polyneuropathy, unspecified; M54.50 Low back pain, unspecified; I10 Essential (primary) hypertension; E78.00 Pure hypercholesterolemia, unspecified; I21.9 Acute myocardial infarction, unspecified; Z79.82 Long term (current) use of aspirin; Z79.899 Other long term (current) drug therapy
CPT/HCPCS: 36415; 70553; 71045; 72157; 72158; 80053; 83690; 84484; 85025; 93005; 96372; 96374; 96375; 96376; 99284; 99285; J1170; J1200; J2765

== ENCOUNTER 2023-07-29 13:54 | Outpatient (CLI) | payer MEDICARE, OTHER ==
[2023-07-29 15:05] LABS: BILIRUBIN,URINE NEGATIVE (NEGATIVE); GLUCOSE, URINE (UA) NEGATIVE (NEGATIVE); KETONES,URINE (UA) NEGATIVE (NEGATIVE); LEUKOCYTE ESTERASE, URINE LARGE (NEGATIVE); NITRITE,URINE POSITIVE (NEGATIVE); OCCULT BLOOD,URINE TRACE-INTA (NEGATIVE); PROTEIN,URINE NEGATIVE (NEGATIVE); UROBILINOGEN,URINE 0.2 (NORMAL) E.U./dL (NORMAL)
[2023-07-29 15:32] LABS: CLARITY,URINE CLOUDY (CLEAR)
[2023-07-29 15:51] LABS: BACTERIA,URINE Many /HPF (None Seen); RBC,URINE 0-5 /HPF (0-5); SQUAMOUS EPITHELIAL CELL,UR FEW Squamous (<= Few); WBC,URINE >25 /HPF (0-5)
== END 2023-07-29 13:55 | disposition home or self-care (01) ==
LOC: LAB 13:54
PROVIDERS: ATTEND Nurse Practitioner Adult Health
DX: R35.0 Frequency of micturition (principal)
CPT/HCPCS: 81001; 87077; 87086; 87181

== ENCOUNTER 2023-08-15 13:51 | Outpatient (CLI) | payer MEDICARE, OTHER ==
[2023-08-15 14:28] LABS: BILIRUBIN,URINE NEGATIVE (NEGATIVE); GLUCOSE, URINE (UA) NEGATIVE (NEGATIVE); KETONES,URINE (UA) NEGATIVE (NEGATIVE); LEUKOCYTE ESTERASE, URINE NEGATIVE (NEGATIVE); NITRITE,URINE NEGATIVE (NEGATIVE); OCCULT BLOOD,URINE NEGATIVE (NEGATIVE); PH,URINE 6.5 PH (5.0-7.5); PROTEIN,URINE NEGATIVE (NEGATIVE); UROBILINOGEN,URINE 0.2 (NORMAL) E.U./dL (NORMAL)
[2023-08-15 14:30] LABS: CLARITY,URINE CLEAR (CLEAR)
[2023-08-15 14:50] LABS: BACTERIA,URINE Rare /HPF (None Seen); EPITHELIAL CELLS,UR FEW Transitional /HPF (<= Few); RBC,URINE 0-5 /HPF (0-5); SQUAMOUS EPITHELIAL CELL,UR FEW Squamous (<= Few); WBC,URINE 0-3 /HPF (0-5)
[2023-08-15 14:51] LABS: CRYSTALS,URINE 6-10 Uric Acid /LPF
== END 2023-08-15 13:52 | disposition home or self-care (01) ==
LOC: LAB.R 13:51
PROVIDERS: ATTEND Nurse Practitioner Adult Health
DX: N31.9 Neuromuscular dysfunction of bladder, unspecified (principal)
CPT/HCPCS: 81001; 87086